=== PATIENT | female | born 1945 | race Caucasian/White ===

== ENCOUNTER 2016-12-21 13:24 | Inpatient (IN) | payer MEDICARE, OTHER ==
[~2016-12-21] VITALS: Ht 165.1 cm; Wt 83.7 kg
[2016-12-21] MEDS ORDERED: ONDANSETRON 4 MG INJ IV STA (14:57)
[2016-12-21] MEDS ORDERED: morphine 4 MG/ML VIAL IV STA (14:57)
[2016-12-21] MEDS ORDERED: SOD CHLORIDE 0.9% 500 ML IV STA (14:57)
[2016-12-21 15:15] LABS: ADD SCAN DIFF NO
[2016-12-21 15:16] LABS: BASOPHILS % 0.6 % (0.0-2.0); EOSINOPHILS % 0.3 % (0.0-7.0); HEMATOCRIT 39.6 % (37.0-47.0); HEMOGLOBIN 13.7 g/dl (12.0-16.0); LYMPHOCYTES # 0.8 10^3/ul (0.8-2.9); LYMPHOCYTES % 10.9 % (15.0-51.0); MEAN CORPUSCULAR HEMOGLOBIN 30.4 pg (29.0-33.0); MEAN CORPUSCULAR HGB CONC 34.6 g/dl (32.0-37.0); MEAN PLATELET VOLUME 9.4 fl (7.4-10.4); MONOCYTES % 13.5 % (0.0-11.0); NEUTROPHIL # 5.2 10^3/ul (1.6-7.5); NEUTROPHILS % 74.3 % (39.0-77.0); PLATELET COUNT 229 10^3/UL (140-415); RED CELL DISTRIBUTION WIDTH 12.4 % (11.5-14.5); WHITE BLOOD COUNT 7.1 10^3/ul (4.8-10.8)
--- NOTE | 2016-12-21 15:25 | ERA ---
ER Documentation Chief Complaint Date/Time DATE: 12/21/16 TIME: 15:23 Chief Complaint 5/10 CP with SOB x this am HPI Very pleasant 71-year-old female presents with chest pain. She states chest pain this morning that is central to the upper chest and radiating to her back that is pleuritic. Associated shortness of breath. Symptoms initially were 10 out of 10 and now 5 out of 10. She denies exertional symptoms or postprandial symptoms. No fevers or chills, no history of DVT. Prior chest surgery of her thymus but no stents no cardiac disease or cardiac surgery. ROS All systems reviewed and are negative except as per history of present illness. Medications Home Meds Reported Medications Duloxetine Hcl* (Duloxetine Hcl*) 60 Mg Capsule.dr, 60 MG PO DAILY, #30 CAP 12/21/16 Atorvastatin Calcium (Atorvastatin Calcium) 10 Mg Tablet, 10 MG PO DAILY, #30 TAB 12/21/16 Celecoxib* (Celebrex*) 200 Mg Capsule, 200 MG PO DAILY, CAP 12/21/16 Gabapentin* (Gabapentin*) 300 Mg Capsule, 300 MG PO BID, #60 CAP 12/21/16 Pyridostigmine [place]* (Pyridostigmine [place]*) 60 Mg Tablet, 120 MG PO BID, TAB 12/21/16 Allergies Allergies: Coded Allergies: No Known Allergy (Unverified , 12/21/16) PMhx/Soc History of Surgery: No Anesthesia Reaction: No Hx Neurological Disorder: No Hx Respiratory Disorders: No Hx Cardiac Disorders: No Hx Psychiatric Problems: No Hx Miscellaneous Medical Probl: Yes (HTN) Hx Alcohol Use: No Hx Substance Use: No Hx Tobacco Use: No FmHx Family History: No diabetes Physical Exam Vitals Vital Signs Date Time Temp Pulse Resp B/P Pulse Ox O2 Delivery O2 Flow Rate FiO2 12/21/16 17:50 99.0 79 19 137/60 95 Room Air 12/21/16 15:00 Nasal Cannula 2 12/21/16 13:32 98.8 83 20 138/81 97 Physical Exam General: Well developed, well nourished, no acute distress Head: Normocephalic, atraumatic. Eyes: Pupils equally reactive, EOM intact ENT: Moist mucous membranes Neck: Supple, no lymphadenopathy Respiratory: Lungs clear bilaterally, no distress Cardiovascular: RRR, no murmurs, rubs, or gallops Abdominal: Soft, non-tender, non-distended, no peritoneal signs : Deferred MSK: No edema, no unilateral swelling, 5/5 strength Neurologic: Alert and oriented, moving all extremities, normal speech, no focal weakness, no cerebellar signs Skin: No rash Psych: Normal mood Result Diagram: 12/21/16 1500 12/21/16 1500 Results 24 hrs Laboratory Tests Test 12/21/16 15:00 White Blood Count 7.110^3/ul Red Blood Count 4.5010^6/ul Hemoglobin 13.7g/dl Hematocrit 39.6% Mean Corpuscular Volume 88.0fl Mean Corpuscular Hemoglobin 30.4pg Mean Corpuscular Hemoglobin Concent 34.6g/dl Red Cell Distribution Width 12.4% Platelet Count 45175^3/UL Mean Platelet Volume 9.4fl Neutrophils % 74.3% Lymphocytes % 10.9% Monocytes % 13.5% Eosinophils % 0.3% Basophils % 0.6% Nucleated Red Blood Cells % 0.0/100WBC Neutrophils # 5.210^3/ul Lymphocytes # 0.810^3/ul Monocytes # 1.010^3/ul Eosinophils # 0.010^3/ul Basophils # 0.010^3/ul Nucleated Red Blood Cells # 0.010^3/ul Prothrombin Time 13.2Sec Prothrombin Time Ratio 1.0 INR International Normalized Ratio 1.00 Activated Partial Thromboplast Time 26.4Sec Sodium Level 144mmol/L Potassium Level 4.0mmol/L Chloride Level 103mmol/L Carbon Dioxide Level 23mmol/L Anion Gap 22 Blood Urea Nitrogen 15mg/dl Creatinine 0.68mg/dl Glucose Level 141mg/dl Calcium Level 10.0mg/dl Troponin I < 0.012ng/ml Current Medications Medications (Trade) Dose Ordered Sig/Brandyn Route PRN Reason Start Time Stop Time Status Last Admin Dose Admin Sodium Chloride (NS) 500 ml @ 500 mls/hr Q1H STAT IV 12/21/16 14:57 12/21/16 15:56 DC 12/21/16 15:12 Morphine Sulfate (morphine) 4 mg ONCE STAT IV 12/21/16 14:57 12/21/16 14:58 DC Ondansetron HCl (Zofran Inj) 4 mg ONCE STAT IV 12/21/16 14:57 12/21/16 14:58 DC Acetaminophen (Tylenol Tab) 650 mg ONCE ONCE PO 12/21/16 15:30 12/21/16 15:31 DC 12/21/16 15:46 IV Flush 10 ml 10 ml STK-MED ONCE .ROUTE 12/21/16 16:01 12/21/16 16:02 DC 12/21/16 16:33 Sodium Chloride 100 ml @ ud STK-MED ONCE .ROUTE 12/21/16 16:01 12/21/16 16:02 DC 12/21/16 16:33 Iohexol (Omnipaque) 100 ml @ ud STK-MED ONCE .ROUTE 12/21/16 16:01 12/21/16 16:02 DC 12/21/16 16:33 Famotidine (Pepcid Iv) 20 mg ONCE STAT IV 12/21/16 17:55 12/21/16 17:57 DC Miscellaneous Medication (Gi Cocktail (2)) 40 ml ONCE STAT PO 12/21/16 17:55 12/21/16 17:57 DC Ketorolac Tromethamine (Toradol) 15 mg ONCE STAT IV 12/21/16 17:55 12/21/16 17:57 DC Procedures/MDM EKG, MONITORS, & DIAGNOSTIC IMAGING: EKG: I reviewed and interpreted a 12-lead EKG. Rhythm: Normal sinus rhythm Ectopy: None Intervals: No abnormalities ST segments: No elevations or depressions T waves: No contiguous inversions Repeat EKG: EKG: I reviewed and interpreted a 12-lead EKG. Rhythm: Normal sinus rhythm Ectopy: None Intervals: No abnormalities ST segments: No elevations or depressions T waves: No contiguous inversions Chest x-ray: I reviewed and interpreted a 1 view of the chest Mediastinum: No enlargement Cardiac silhouette: No cardiomegaly Airspace: Clear lung montano bilaterally without evidence of pneumothorax Bones: No evidence of fracture CTPA: IMPRESSION: No visualized pulmonary embolus. Mild ectasia of the ascending thoracic aorta, measuring up to 3.7 cm. 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 Small to moderate pericardial effusion. Scattered atelectasis mixed with mild ground-glass opacity in the bilateral lower lobes. Ground-glass opacity could reflect mild airspace edema versus mild airspace inflammation. 2.6 cm low attenuation nodule in the right adrenal gland. This nodule is incompletely characterized on the current study. Further characterization with an adrenal protocol CT or MRI is recommended. Degenerative changes in the spine. RPTAT: AA LAB INTERPRETATION: Negative troponin MEDICAL DECISION MAKING: The patient's history, physical exam and clinical presentation is concerning for possible cardiogenic etiology and acute coronary syndrome, however the patient also has pleuritic component that is concerning for possible pulmonary embolism. Lower concern for dissection given limited risk factors. Consider musculoskeletal versus reflux as well. Based on the patient's clinical exam and history and risk factors, I have a much lower clinical concern for pulmonary embolism, acute aortic dissection, pneumothorax, pneumonia, cardiac tamponade HEART Score: 3 MACE Rate: 1.7% Shared Decision Making: We had a conversation regarding risk stratification, MACE rate, and the risks, benefits, alternatives of disposition planning options. Disposition planning: Given the patient's age I would recommend hospitalization to rule out ACS. ER COURSE: Patient has no evidence of PE or dissection. Patient given aspirin, Toradol, she refused morphine. GI cocktail provided. Given persistence of pain inpatient hospitalization recommended. I kept the patient and/or family informed of laboratory and diagnostic imaging results throughout the emergency room course. DISPOSITION PLAN: Telemetry admission for management of chest pain CONSULTATION: Accepting care team and consultations: I discussed the current laboratory data, diagnostic imaging and emergency care provided. Admitting team: Dr. Hudson Admitting team indication: Insurance directed Departure Diagnosis: Primary Impression: Chest pain Qualified Code: R07.9 - Chest pain, unspecified type Condition: Stable MC BELL MD Dec 21, 2016 15:25
[2016-12-21] MEDS ORDERED: ACETAMINOPHEN 325 MG TAB PO ONE (15:30)
--- NOTE | 2016-12-21 15:33 | RADRPT ---
PROCEDURE: XR Chest. CLINICAL INDICATION: Chest pain TECHNIQUE: Single frontal view of the chest was obtained COMPARISON: None FINDINGS: The heart is enlarged. The thoracic aorta is calcified. The lungs are clear. There is no pleural effusion or pneumothorax. RPTAT: AA IMPRESSION: Mild cardiomegaly. Calcified aorta consistent with atherosclerotic disease. .Andrew Martin MD, MD Date Time Electronically viewed and signed by .Andrew Martin MD, on 12/21/2016 15:33 .S/
[2016-12-21 15:39] LABS: ANION GAP 22 (8-16); BLOOD UREA NITROGEN 15 mg/dl (7-20); CARBON DIOXIDE 23 mmol/L (21-31); CHLORIDE 103 mmol/L (97-110); CREATININE 0.68 mg/dl (0.44-1.00); GLUCOSE 141 mg/dl (70-220); SODIUM 144 mmol/L (135-144)
[2016-12-21 15:44] LABS: PARTIAL THROMBOPLASTIN TIME 26.4 Sec (25.0-35.0); PROTIME 13.2 Sec (12.2-14.2)
[2016-12-21] MEDS ORDERED: PYRI60TA9 PO (16:00)
[2016-12-21] MEDS ORDERED: IOHEXOL 100 ML ONE (16:01)
[2016-12-21] MEDS ORDERED: GABA300C16 PO (16:01)
[2016-12-21] MEDS ORDERED: CELE200C PO (16:01)
[2016-12-21] MEDS ORDERED: SOD CHLORIDE 0.9% 100 ML ONE (16:01)
[2016-12-21] MEDS ORDERED: DULO60CA59 PO (16:02)
[2016-12-21] MEDS ORDERED: ATOR10TA65 PO (16:02)
--- NOTE | 2016-12-21 16:40 | RADRPT ---
PROCEDURE: CTA Chest with IV contrast. CLINICAL INDICATION: Chest pain and shortness of breath. TECHNIQUE: The study was performed utilizing a multidetector CT scanner. Direct spiral axial secti ons were obtained from the thoracic inlet through the upper abdomen before and after the injection o f 100 cc Omnipaque through fifth intravenous contrast material and reformatted at 1.25 mm. 3D, coron al and sagittal reformations were obtained. The images were reviewed on a PACS workstation. Automate d exposure control was utilized. DLP = 592.9 mGy-cm.CTDiVol = 35.2, 18.3 mGy. One or more of the following post reduction techniques were used: - Automated exposure control. - Adjustment of the mA and/or Kv according to patient's size. - Use of iterative reconstruction technique COMPARISON: No prior studies are available for comparison. FINDINGS: No pulmonary arterial filling defects to indicate pulmonary embolus are identified. Heart is large. Small to moderate pericardial effusion is identified. No hilar or mediastinal lymp hadenopathy is identified. The visualized portions of the inferior thyroid appear unremarkable. Khurram iant anatomy with an aberrant right subclavian artery is observed. The ascending aorta is mildly ect atic and measures up to 3.7 cm The thoracic esophagus appears normal. Scattered atelectasis mixed with mild ground-glass opacity is identified in the bilateral lower lobe s. Dependent, subsegmental atelectasis is noted in the bilateral upper lobes. Small bleb is seen i n the periphery of the right lower lobe. A 2.6 cm low attenuation nodule is identified in the right adrenal gland. Mild to moderate degenerative changes are identified in the spine. The subcutaneous and muscular so ft tissues surrounding the chest are unremarkable. IMPRESSION: No visualized pulmonary embolus. Mild ectasia of the ascending thoracic aorta, measuring up to 3.7 cm. 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 Small to moderate pericardial effusion. Scattered atelectasis mixed with mild ground-glass opacity in the bilateral lower lobes. Ground-gla ss opacity could reflect mild airspace edema versus mild airspace inflammation. 2.6 cm low attenuation nodule in the right adrenal gland. This nodule is incompletely characterized on the current study. Further characterization with an adrenal protocol CT or MRI is recommended. Degenerative changes in the spine. RPTAT: AA .Nitesh Lewis MD, MD Date Time Electronically viewed and signed by .Nitesh Lewis MD, MD on 12/21/2016 16:40 .P/
[2016-12-21 17:43] LABS: TROPONIN-I < 0.012 ng/ml (0.00-0.12)
[2016-12-21 17:50] VITALS: TEMP 99
[2016-12-21] MEDS ORDERED: FAMOTIDINE 20 MG INJ IV STA (17:55)
[2016-12-21] MEDS ORDERED: KETOROLAC 15 MG INJ IV STA (17:55)
[2016-12-21] MEDS ORDERED: LIDOCAINE/MYLANTA 40 ML BTL PO STA (17:55)
[2016-12-21] MEDS ORDERED: ONDANSETRON 4 MG INJ IV PRN ×2 (18:00→18:30)
[2016-12-21] MEDS ORDERED: ACETAMINOPHEN 325 MG TAB PO PRN ×2 (18:00→18:30)
[2016-12-21] MEDS ORDERED: NA PHOSPHATE/BIPHOS 133 ML ENEMA PR PRN (18:30)
[2016-12-21] MEDS ORDERED: morphine 2 MG INJ IV PRN (18:30)
[2016-12-21] MEDS ORDERED: ALBUTEROL/IPRATROPIUM (NEB) 3 ML AMP HHN PRN (18:30)
[2016-12-21] MEDS ORDERED: MAGNESIUM HYDROXIDE 30ML CUP PO PRN (18:30)
[2016-12-21] MEDS ORDERED: LORAZEPAM 2 MG INJ IV PRN (18:30)
[2016-12-21] MEDS ORDERED: NITROGLYCERIN (SL) 0.4 MG TAB SL PRN (18:30)
[2016-12-21] MEDS ORDERED: hydrALAzine 20 MG INJ IV PRN (18:30)
[2016-12-21] MEDS ORDERED: NACL 0.9% 3 ML SYG IV SCH (18:30)
[2016-12-21 18:53] VITALS: PULSE 78
[2016-12-21 19:35] VITALS: BP 130/71; RESP 20
--- NOTE | 2016-12-21 19:52 | HP ---
Date/Time of Note Date/Time of Note DATE: 12/21/16 TIME: 19:45 Assessment/Plan VTE Prophylaxis VTE Prophylaxis Intervention: heparin Lines/Catheters IV [facility] [place] Assessment/Plan Chief Complaint/Hosp Course Assessment and plan: 71-year-old female with chest pain symptoms for 2 days, history of myasthenia gravis, rule out ACS. 1. Chest pain: Could be secondary to acute coronary syndrome versus musculoskeletal. Patient has some risk factors including father with heart attack in the past. -Admit patient to telemetry floor, trend troponins every 6 hours, check TSH A1c lipid panel, aspirin, statin, echo. -Patient with recent arrhythmia since admission, and palpitations, will also get cardiology consult 2. Myasthenia gravis: Continue pyridostigmine 3. GERD: PPI 4. High cholesterol: Check lipid panel, statin 5. GI prophylaxis: PPI 6. DVT prophylaxis: Heparin subcutaneous Problems: HPI/ROS Admit Date/Time Admit Date/Time Dec 21, 2016 at 17:59 ROS 71-year-old female past medical history of high cholesterol, myasthenia gravis, GERD, thymus surgery in the past, he has been having chest pain for the last 2 days. She says it radiates to the shoulder and low back. She is also been having chest palpitations. Chest pain is constant in nature, radiating only to the areas mentioned above. No upper or lower GI bleeding, fevers or chills, nausea vomiting, diarrhea or constipation. PMH/Family/Social Past Surgical History Past Surgical Hx: other (Thymus surgery) Family History Significant Family History: other (F - [place]; M - living) Social History Alcohol Use: none Smoking Status: Never smoker Drug Use: none Exam/Review of Systems Vital Signs Vitals Vital Signs Date Time Temp Pulse Resp B/P Pulse Ox O2 Delivery O2 Flow Rate FiO2 12/21/16 19:35 98.4 75 20 130/71 98 12/21/16 17:50 Room Air 12/21/16 15:00 2 Exam Exam General: Patient sitting up in bed, playing with her iPad, in mild distress HEENT: Pupils equal round reactive to light extra ocular muscles are intact Neck: Supple Respiratory: Clear to auscultation bilaterally Cardiovascular: S1-S2 heard, no rubs or gallops GI: Nontender nondistended normal bowel sounds no rebound Muscular skeletal: No lower extremity edema bilaterally Neuro: No focal deficits Labs Result Diagram: 12/21/16 1500 12/21/16 1500 Medications Medications Current Medications Ondansetron HCl (Zofran Inj) 4 mg Q6H PRN IV NAUSEA AND/OR VOMITING; Start 12/21 at 18:30 Acetaminophen (Tylenol Tab) 650 mg Q6H PRN PO PAIN LEVEL 1-3 OR FEVER; Start at 18:30 Acetaminophen/ Hydrocodone Bitart ([place] (5/325)) 1 tab Q6H PRN PO MODERATE PAIN LEVEL 4-6; Start 12/21/16 at 18:30 Morphine Sulfate (morphine) 2 mg Q4H PRN IV SEVERE PAIN LEVEL 7-10; Start at 18:30 Docusate Sodium (Colace) 100 mg Q12H PRN PO CONSTIPATION; Start 12/21/16 at 18: 30 Magnesium Hydroxide (Milk Of Mag) 30 ml DAILY PRN PO CONSTIPATION; Start at 18:30 Sodium Biphosphate/ Sodium Phosphate (Fleet Enema) 133 ml DAILY PRN [place] CONSTIPATION; Start 12/21/16 at 18:30 Pantoprazole (Protonix Tab) 40 mg DAILY@06 PO ; Start 12/22/16 at 06:00 Heparin Sodium (Porcine) 5000 unit 5,000 unit Q12 SC ; Start 12/21/16 at 21:00 Sodium Chloride (1/2 NS) 1,000 ml @ 75 mls/hr [id number] IV ; Start 12/21/16 at 18: 25 Lorazepam (Ativan) 0.5 mg Q6H PRN IV ANXIETY; Start 12/21/16 at 18:30 Hydralazine HCl (Apresoline) 10 mg Q6H PRN IV ELEVATED BLOOD PRESSURE; Start at 18:30 Nitroglycerin (Nitroglycerin (Sl Tab) 0.4 Mg) 1 tab Q5M PRN SL ANGINA; Start at 18:30 Aspirin (Ecotrin) 325 mg DAILY PO ; Start 12/22/16 at 09:00 Atorvastatin Calcium (Lipitor) 10 mg DAILY PO ; Start 12/22/16 at 09:00 Duloxetine HCl (Cymbalta) 60 mg DAILY PO ; Start 12/22/16 at 09:00 Gabapentin (Neurontin) 300 mg BID PO ; Start 12/21/16 at 21:00 Pyridostigmine [place] (Mestinon) 120 mg BID PO ; Start 12/21/16 at 21:00 NAT MANCIA Dec 21, 2016 19:52
[2016-12-21 20:02] VITALS: PULSE 75
[2016-12-21] MEDS: METOPROLOL 25 MG TAB PO SCH (21:00)
[2016-12-21] MEDS: PYRIDOSTIGMINE 60 MG TAB PO SCH ×2 (21:00→21:06)
[2016-12-21] MEDS: GABAPENTIN 300 MG CAP PO SCH ×2 (21:00→21:07)
[2016-12-21 21:34] VITALS: Ht 165.1 cm; Wt 83.7 kg
[2016-12-21 21:36] LABS: MAGNESIUM 1.9 mg/dl (1.7-2.5)
[2016-12-21 21:38] LABS: CREATINE KINASE 30 IU/L (23-200)
[2016-12-21 21:39] LABS: ALBUMIN 4.2 g/dl (3.3-4.9); BILIRUBIN,INDIRECT 0.3 mg/dl (0-1.1); BILIRUBIN,TOTAL 0.3 mg/dl (0.2-1.3); TOTAL PROTEIN 6.4 g/dl (6.1-8.1)
[2016-12-21] MEDS: SOD CHLORIDE 0.45% 1,000 ML IV SCH (21:45)
[2016-12-21] MEDS: HEPARIN 5,000 UNIT/0.5 ML VIAL SC SCH (21:48)
[2016-12-21 21:49] LABS: CK-MB 0.57 ng/ml (0.0-2.4)
[2016-12-21 21:50] LABS: TROPONIN-I < 0.012 ng/ml (0.00-0.12)
[2016-12-22] VITALS (13 sets, daily range): BP systolic 110–127; BP diastolic 52–80; PULSE 63–86; RESP 15–20
[2016-12-22 00:34] LABS: CREATINE KINASE 27 IU/L (23-200)
[2016-12-22 00:46] LABS: CK-MB 0.52 ng/ml (0.0-2.4)
[2016-12-22 00:52] LABS: TROPONIN-I < 0.012 ng/ml (0.00-0.12)
[2016-12-22] MEDS: METOPROLOL 25 MG TAB PO SCH ×3 (01:12→20:27)
[2016-12-22 01:31] LABS: CREATINE KINASE 24 IU/L (23-200)
[2016-12-22 01:43] LABS: CK-MB 0.49 ng/ml (0.0-2.4)
[2016-12-22 01:52] LABS: TROPONIN-I < 0.012 ng/ml (0.00-0.12)
[2016-12-22] MEDS ORDERED: MAGNESIUM SULFATE 2 GM/50 ML 50 ML IVPB ONE (02:00)
[2016-12-22] MEDS: PANTOPRAZOLE (EC) 40 MG TAB PO SCH (05:58)
[2016-12-22 06:06] LABS: ADD SCAN DIFF NO
[2016-12-22 06:44] LABS: CREATINE KINASE 22 IU/L (23-200)
[2016-12-22 06:45] LABS: BASOPHILS % 0.5 % (0.0-2.0); EOSINOPHILS # 0.1 10^3/ul (0.0-0.5); EOSINOPHILS % 1.7 % (0.0-7.0); HEMATOCRIT 34.8 % (37.0-47.0); HEMOGLOBIN 11.8 g/dl (12.0-16.0); LYMPHOCYTES # 0.8 10^3/ul (0.8-2.9); MEAN CORPUSCULAR HEMOGLOBIN 29.9 pg (29.0-33.0); MEAN CORPUSCULAR HGB CONC 33.9 g/dl (32.0-37.0); MEAN CORPUSCULAR VOLUME 88.3 fl (82.0-101.0); MEAN PLATELET VOLUME 10.1 fl (7.4-10.4); MONOCYTES % 23.2 % (0.0-11.0); NEUTROPHIL # 2.3 10^3/ul (1.6-7.5); NEUTROPHILS % 55.1 % (39.0-77.0); PLATELET COUNT 204 10^3/UL (140-415); RED BLOOD COUNT 3.94 10^6/ul (4.20-5.40); RED CELL DISTRIBUTION WIDTH 12.5 % (11.5-14.5); WHITE BLOOD COUNT 4.2 10^3/ul (4.8-10.8)
[2016-12-22 06:52] LABS: CK-MB 0.39 ng/ml (0.0-2.4)
[2016-12-22 07:09] LABS: TROPONIN-I < 0.012 ng/ml (0.00-0.12)
[2016-12-22 07:44] LABS: THYROID STIMULATING HORMONE 1.89 MIU/L (0.465-4.680)
[2016-12-22] MEDS: SOD CHLORIDE 0.45% 1,000 ML IV SCH (07:45)
[2016-12-22 07:53] LABS: CALCIUM 8.6 mg/dl (8.4-10.2); CREATININE 0.61 mg/dl (0.44-1.00); MAGNESIUM 2.6 mg/dl (1.7-2.5); PHOSPHORUS 4.1 mg/dl (2.5-4.9); POTASSIUM 4.1 mmol/L (3.5-5.1)
[2016-12-22] MEDS: PYRIDOSTIGMINE 60 MG TAB PO SCH ×2 (08:15→08:16)
[2016-12-22] MEDS: DULOXETINE 30 MG CAP DR PO SCH (08:15)
[2016-12-22] MEDS: GABAPENTIN 300 MG CAP PO SCH ×2 (08:16→20:26)
[2016-12-22] MEDS: ASPIRIN (EC) 325 MG TAB PO SCH (08:16)
[2016-12-22] MEDS: ATORVASTATIN 10 MG TAB PO SCH (08:16)
[2016-12-22] MEDS: HEPARIN 5,000 UNIT/0.5 ML VIAL SC SCH ×2 (08:18→20:29)
--- NOTE | 2016-12-22 11:01 | CONS ---
Date/Time of Note Date/Time of Note DATE: 12/22/16 TIME: 10:58 Assessment/Plan Assessment/Plan Chief Complaint/Hosp Course 1) atypical chest pain 2) fam ho premature cardiac ds 3) MG 4) HLP 5) narrow complex tachycardia Problems: Additional Assessment/Plan 1) Stress testing 2) echo 3) statin 4) beta mil Consultation Date/Type/Reason Admit Date/Time Dec 21, 2016 at 17:59 Date of Consultation: Dec 22, 2016 Type of Consultation: cv Reason for Consultation chest pain Hx of Present Illness reports chest pain, yesterday, mid chest, constant, dull ,no radiation, not exertion or positional, no sob. Eyes: no complaints Respiratory: no complaints Cardiovascular: no complaints Gastrointestinal: no complaints Musculoskeletal: no complaints Skin: no complaints Neurologic: no complaints Past Medical History Medical History: high cholesterol, hypertension, other (mysthenia gravis) Past Surgical History Past Surgical Hx: other (Thymus surgery) Family History Significant Family History: heart disease, hypertension Social History Alcohol Use: none Smoking Status: Never smoker Drug Use: none Exam/Review of Systems Vital Signs Vitals Vital Signs Date Time Temp Pulse Resp B/P Pulse Ox O2 Delivery O2 Flow Rate FiO2 12/22/16 08:14 73 12/22/16 07:12 98.3 18 110/59 98 12/21/16 20:20 Nasal Cannula 2.0 Intake and Output 12/21/16 12/21/16 12/22/16 15:00 23:00 07:00 Intake Total 950 ml Output Total 1 ml Balance 949 ml Exam Constitutional: alert, oriented Head: atraumatic, normocephalic Neck: supple Respiratory: clear to auscultation Cardiovascular: regular rate and rhythm Gastrointestinal: soft Musculoskeletal: nl extremities to inspection Extremities: normal pulses Results Result Diagram: 12/22/16 0550 12/22/16 0550 Results 24 hrs Laboratory Tests Test 12/21/16 15:00 12/21/16 21:00 12/21/16 21:42 12/22/16 00:06 White Blood Count 7.1 Red Blood Count 4.50 Hemoglobin 13.7 Hematocrit 39.6 Mean Corpuscular Volume 88.0 Mean Corpuscular Hemoglobin 30.4 Mean Corpuscular Hemoglobin Concent 34.6 Red Cell Distribution Width 12.4 Platelet Count 229 Mean Platelet Volume 9.4 Neutrophils % 74.3 Lymphocytes % 10.9 L Monocytes % 13.5 H Eosinophils % 0.3 Basophils % 0.6 Nucleated Red Blood Cells % 0.0 Neutrophils # 5.2 Lymphocytes # 0.8 Monocytes # 1.0 H Eosinophils # 0.0 Basophils # 0.0 Nucleated Red Blood Cells # 0.0 Prothrombin Time 13.2 Prothrombin Time Ratio 1.0 INR International Normalized Ratio 1.00 Activated Partial Thromboplast Time 26.4 Sodium Level 144 Potassium Level 4.0 Chloride Level 103 Carbon Dioxide Level 23 Anion Gap 22 H Blood Urea Nitrogen 15 Creatinine 0.68 Glucose Level 141 Calcium Level 10.0 Troponin I < 0.012 < 0.012 < 0.012 Free Thyroxine 0.89 Phosphorus Level 4.0 Magnesium Level 1.9 Total Bilirubin 0.3 Direct Bilirubin 0.00 Indirect Bilirubin 0.3 Aspartate Amino Transf (AST/SGOT) 54 H Alanine Aminotransferase (ALT/SGPT) 78 H Alkaline Phosphatase 83 Creatine Kinase 30 27 Creatine Kinase Index 1.9 1.9 Creatinine Kinase MB (Mass) 0.57 0.52 Total Protein 6.4 Albumin 4.2 Bedside Glucose 166 Test 12/22/16 00:43 12/22/16 05:50 Creatine Kinase 24 22 L Creatine Kinase Index 2.0 1.8 Creatinine Kinase MB (Mass) 0.49 0.39 Troponin I < 0.012 < 0.012 White Blood Count 4.2 #L Red Blood Count 3.94 L Hemoglobin 11.8 L Hematocrit 34.8 L Mean Corpuscular Volume 88.3 Mean Corpuscular Hemoglobin 29.9 Mean Corpuscular Hemoglobin Concent 33.9 Red Cell Distribution Width 12.5 Platelet Count 204 Mean Platelet Volume 10.1 Neutrophils % 55.1 Lymphocytes % 19.0 Monocytes % 23.2 H Eosinophils % 1.7 Basophils % 0.5 Nucleated Red Blood Cells % 0.0 Neutrophils # 2.3 Lymphocytes # 0.8 Monocytes # 1.0 H Eosinophils # 0.1 Basophils # 0.0 Nucleated Red Blood Cells # 0.0 Sodium Level 136 Potassium Level 4.1 Chloride Level 104 Carbon Dioxide Level 22 Anion Gap 14 # Blood Urea Nitrogen 13 Creatinine 0.61 Glucose Level 147 Hemoglobin A1c 5.9 Calcium Level 8.6 Phosphorus Level 4.1 Magnesium Level 2.6 H Triglycerides Level 104 Cholesterol Level 131 LDL Cholesterol, Calculated 78 HDL Cholesterol 32 L Cholesterol/HDL Ratio 4.0 Thyroid Stimulating Hormone (TSH) 1.890 Medications Medications Current Medications Ondansetron HCl (Zofran Inj) 4 mg Q6H PRN IV NAUSEA AND/OR VOMITING; Start 12/21 at 18:30 Acetaminophen (Tylenol Tab) 650 mg Q6H PRN PO PAIN LEVEL 1-3 OR FEVER Last administered on 12/21/16 23:42; Admin Dose 650 MG; Start 12/21/16 at 18:30 Acetaminophen/ Hydrocodone Bitart ([place] (5/325)) 1 tab Q6H PRN PO MODERATE PAIN LEVEL 4-6; Start 12/21/16 at 18:30 Morphine Sulfate (morphine) 2 mg Q4H PRN IV SEVERE PAIN LEVEL 7-10 Last administered on 12/21/16 21:09; Admin Dose 1 MG; Start 12/21/16 at 18:30 Docusate Sodium (Colace) 100 mg Q12H PRN PO CONSTIPATION; Start 12/21/16 at 18: 30 Magnesium Hydroxide (Milk Of Mag) 30 ml DAILY PRN PO CONSTIPATION; Start at 18:30 Sodium Biphosphate/ Sodium Phosphate (Fleet Enema) 133 ml DAILY PRN [place] CONSTIPATION; Start 12/21/16 at 18:30 Pantoprazole (Protonix Tab) 40 mg DAILY@06 PO Last administered on 12/22/16 05: 58; Admin Dose 40 MG; Start 12/22/16 at 06:00 Heparin Sodium (Porcine) 5000 unit 5,000 unit Q12 SC Last administered on 08:18; Admin Dose 5,000 UNIT; Start 12/21/16 at 21:00 Sodium Chloride (1/2 NS) 1,000 ml @ 75 mls/hr [id number] IV Last administered on 12/21/16 21:45; Admin Dose 75 MLS/HR; Start 12/21/16 at 18:25 Lorazepam (Ativan) 0.5 mg Q6H PRN IV ANXIETY; Start 12/21/16 at 18:30 Hydralazine HCl (Apresoline) 10 mg Q6H PRN IV ELEVATED BLOOD PRESSURE; Start at 18:30 Nitroglycerin (Nitroglycerin (Sl Tab) 0.4 Mg) 1 tab Q5M PRN SL ANGINA; Start at 18:30 Aspirin (Ecotrin) 325 mg DAILY PO Last administered on 12/22/16 08:16; Admin Dose 325 MG; Start 12/22/16 at 09:00 Atorvastatin Calcium (Lipitor) 10 mg DAILY PO Last administered on 12/22/16 08: 16; Admin Dose 10 MG; Start 12/22/16 at 09:00 Duloxetine HCl (Cymbalta) 60 mg DAILY PO Last administered on 12/22/16 08:15; Admin Dose 60 MG; Start 12/22/16 at 09:00 Gabapentin (Neurontin) 300 mg BID PO Last administered on 12/22/16 08:16; Admin Dose 300 MG; Start 12/21/16 at 21:00 Pyridostigmine [place] (Mestinon) 120 mg BID PO Last administered on 12/22/16 08:16; Admin Dose 120 MG; Start 12/21/16 at 21:00 Metoprolol Tartrate (Lopressor) 12.5 mg BID PO Last administered on 12/22/16 08 :16; Admin Dose 12.5 MG; Start 12/21/16 at 21:00 Procedures Procedures EKG: SR, nonspecific ST changes SYLVIA VARGAS MD Dec 22, 2016 11:01
--- NOTE | 2016-12-22 14:16 | PN ---
Date/Time of Note Date/Time of Note DATE: 12/22/16 TIME: 14:15 Assessment/Plan VTE Prophylaxis VTE Prophylaxis Intervention: heparin Lines/Catheters IV C[facility] Type ([facility] Peripheral IV Urinary Cath still in place: No Assessment/Plan Chief Complaint/Hosp Course 1. Chest pain. To rule out acute coronary syndrome. Serial troponins negative so far. Pending 2D echocardiogram. Status post evaluation by cardiology. Patient scheduled for cardiac stress test on 12/23/2016. 2. Dyslipidemia. Continue statins. 3. Myasthenia gravis. Status post thymectomy. Continue Mestinon. 4. Narrow complex tachycardia. The patient was started on beta-blockers. 5. GERD. Continue proton pump inhibitors. Obtain gastroenterology consult. 6. Fluids, electrolytes, and nutrition. Low-cholesterol diet. 7. Gastrointestinal prophylaxis. Proton pump inhibitors. 8. DVT prophylaxis. Bilateral sequential compression devices. Subcutaneous heparin. 9. Plan. Await cardiac stress test on 12/23/2016. Obtain gastroenterology consult. Case discussed with . Problems: Subjective 24 Hr Interval Summary Free Text/Dictation Denies any chest pain at this time. Exam/Review of Systems Vital Signs Vitals Vital Signs Date Time Temp Pulse Resp B/P Pulse Ox O2 Delivery O2 Flow Rate FiO2 12/22/16 12:06 66 12/22/16 11:10 98.6 16 119/68 95 12/22/16 08:00 Nasal Cannula 2.0 Intake and Output 12/21/16 12/21/16 12/22/16 15:00 23:00 07:00 Intake Total 950 ml Output Total 1 ml Balance 949 ml Exam General: Obese 71 year-old female lying in bed in no apparent distress. HEENT: Normocephalic, atraumatic. Eyes: Anicteric sclerae, conjunctivae clear. ENT: Nasal septum midline, oral mucosa moist. Neck supple, no JVD noticed. Respiratory: Bilaterally clear breath sounds. No use of accessory muscles of respiration. No adventitious breath sounds. Cardiovascular: S1, S2 heard. No murmurs or gallops. Sternotomy scar. Abdomen: Soft, nontender, and nondistended. Bowel sounds positive in all 4 quadrants. Genitourinary: Deferred. Extremities: No cyanosis, no clubbing, no edema. Peripheral pulses palpable. Neurologic: Cranial nerves II through XII grossly intact. The patient is awake, alert, and oriented. Skin: Normal skin turgor. No skin rashes. Results Result Diagram: 12/22/16 0550 12/22/16 0550 Results 24 hrs Laboratory Tests Test 12/21/16 15:00 12/21/16 21:00 12/21/16 21:42 12/22/16 00:06 White Blood Count 7.1 Red Blood Count 4.50 Hemoglobin 13.7 Hematocrit 39.6 Mean Corpuscular Volume 88.0 Mean Corpuscular Hemoglobin 30.4 Mean Corpuscular Hemoglobin Concent 34.6 Red Cell Distribution Width 12.4 Platelet Count 229 Mean Platelet Volume 9.4 Neutrophils % 74.3 Lymphocytes % 10.9 L Monocytes % 13.5 H Eosinophils % 0.3 Basophils % 0.6 Nucleated Red Blood Cells % 0.0 Neutrophils # 5.2 Lymphocytes # 0.8 Monocytes # 1.0 H Eosinophils # 0.0 Basophils # 0.0 Nucleated Red Blood Cells # 0.0 Prothrombin Time 13.2 Prothrombin Time Ratio 1.0 INR International Normalized Ratio 1.00 Activated Partial Thromboplast Time 26.4 Sodium Level 144 Potassium Level 4.0 Chloride Level 103 Carbon Dioxide Level 23 Anion Gap 22 H Blood Urea Nitrogen 15 Creatinine 0.68 Glucose Level 141 Calcium Level 10.0 Troponin I < 0.012 < 0.012 < 0.012 Free Thyroxine 0.89 Phosphorus Level 4.0 Magnesium Level 1.9 Total Bilirubin 0.3 Direct Bilirubin 0.00 Indirect Bilirubin 0.3 Aspartate Amino Transf (AST/SGOT) 54 H Alanine Aminotransferase (ALT/SGPT) 78 H Alkaline Phosphatase 83 Creatine Kinase 30 27 Creatine Kinase Index 1.9 1.9 Creatinine Kinase MB (Mass) 0.57 0.52 Total Protein 6.4 Albumin 4.2 Bedside Glucose 166 Test 12/22/16 00:43 12/22/16 05:50 Creatine Kinase 24 22 L Creatine Kinase Index 2.0 1.8 Creatinine Kinase MB (Mass) 0.49 0.39 Troponin I < 0.012 < 0.012 White Blood Count 4.2 #L Red Blood Count 3.94 L Hemoglobin 11.8 L Hematocrit 34.8 L Mean Corpuscular Volume 88.3 Mean Corpuscular Hemoglobin 29.9 Mean Corpuscular Hemoglobin Concent 33.9 Red Cell Distribution Width 12.5 Platelet Count 204 Mean Platelet Volume 10.1 Neutrophils % 55.1 Lymphocytes % 19.0 Monocytes % 23.2 H Eosinophils % 1.7 Basophils % 0.5 Nucleated Red Blood Cells % 0.0 Neutrophils # 2.3 Lymphocytes # 0.8 Monocytes # 1.0 H Eosinophils # 0.1 Basophils # 0.0 Nucleated Red Blood Cells # 0.0 Sodium Level 136 Potassium Level 4.1 Chloride Level 104 Carbon Dioxide Level 22 Anion Gap 14 # Blood Urea Nitrogen 13 Creatinine 0.61 Glucose Level 147 Hemoglobin A1c 5.9 Calcium Level 8.6 Phosphorus Level 4.1 Magnesium Level 2.6 H Triglycerides Level 104 Cholesterol Level 131 LDL Cholesterol, Calculated 78 HDL Cholesterol 32 L Cholesterol/HDL Ratio 4.0 Thyroid Stimulating Hormone (TSH) 1.890 Medications Medications Current Medications Ondansetron HCl (Zofran Inj) 4 mg Q6H PRN IV NAUSEA AND/OR VOMITING; Start 12/21 at 18:30 Acetaminophen (Tylenol Tab) 650 mg Q6H PRN PO PAIN LEVEL 1-3 OR FEVER Last administered on 12/21/16 23:42; Admin Dose 650 MG; Start 12/21/16 at 18:30 Acetaminophen/ Hydrocodone Bitart ([place] (5/325)) 1 tab Q6H PRN PO MODERATE PAIN LEVEL 4-6; Start 12/21/16 at 18:30 Morphine Sulfate (morphine) 2 mg Q4H PRN IV SEVERE PAIN LEVEL 7-10 Last administered on 12/21/16 21:09; Admin Dose 1 MG; Start 12/21/16 at 18:30 Docusate Sodium (Colace) 100 mg Q12H PRN PO CONSTIPATION; Start 12/21/16 at 18: 30 Magnesium Hydroxide (Milk Of Mag) 30 ml DAILY PRN PO CONSTIPATION; Start at 18:30 Sodium Biphosphate/ Sodium Phosphate (Fleet Enema) 133 ml DAILY PRN [place] CONSTIPATION; Start 12/21/16 at 18:30 Pantoprazole (Protonix Tab) 40 mg DAILY@06 PO Last administered on 12/22/16 05: 58; Admin Dose 40 MG; Start 12/22/16 at 06:00 Heparin Sodium (Porcine) (Heparin (5000 Units/0.5 ml)) 5,000 unit Q12 SC Last administered on 12/22/16 08:18; Admin Dose 5,000 UNIT; Start 12/21/16 at 21:00 Lorazepam (Ativan) 0.5 mg Q6H PRN IV ANXIETY; Start 12/21/16 at 18:30 Hydralazine HCl (Apresoline) 10 mg Q6H PRN IV ELEVATED BLOOD PRESSURE; Start at 18:30 Nitroglycerin (Nitroglycerin (Sl Tab) 0.4 Mg) 1 tab Q5M PRN SL ANGINA; Start at 18:30 Aspirin (Ecotrin) 325 mg DAILY PO Last administered on 12/22/16 08:16; Admin Dose 325 MG; Start 12/22/16 at 09:00 Atorvastatin Calcium (Lipitor) 10 mg DAILY PO Last administered on 12/22/16 08: 16; Admin Dose 10 MG; Start 12/22/16 at 09:00 Duloxetine HCl (Cymbalta) 60 mg DAILY PO Last administered on 12/22/16 08:15; Admin Dose 60 MG; Start 12/22/16 at 09:00 Gabapentin (Neurontin) 300 mg BID PO Last administered on 12/22/16 08:16; Admin Dose 300 MG; Start 12/21/16 at 21:00 Pyridostigmine [place] (Mestinon) 120 mg BID PO Last administered on 12/22/16 08:16; Admin Dose 120 MG; Start 12/21/16 at 21:00 Metoprolol Tartrate (Lopressor) 12.5 mg BID PO Last administered on 12/22/16 08 :16; Admin Dose 12.5 MG; Start 12/21/16 at 21:00 LORRAINE WU NP Dec 22, 2016 14:16
--- NOTE | 2016-12-22 15:05 | CONS ---
Date/Time of Note Date/Time of Note DATE: 12/22/16 TIME: 14:44 Assessment/Plan Assessment/Plan Additional Assessment/Plan Assessment * Chest pain R/O ACS VS Atypical Chest pain * Myasthenia gravis * History of GERD' * History of Thymus surgery Plan * adequate pain control * EGD on Saturday after stress test tomorrow * Continue present management Consultation Date/Type/Reason Admit Date/Time Dec 21, 2016 at 17:59 Date of Consultation: Dec 22, 2016 Type of Consultation: Gastroenterology Reason for Consultation Acid reflux Referring Provider: LORRAINE UW CHOPPER OPERATOR Hx of Present Illness 71 year old female who presented in the emergency room because of chest pain.Past medical history includes myasthenia gravis,GERD,high cholesterol and thymus surgery.Present condition started 2 days ago as chest pain constant in character radiating to the shoulder and low back.She denies any hematemesis, hematochezia and abdominal pain but claims having acidic taste in the past. Emergency room course ,revealed WBC 7.1,hemoglobin 13.7 ,hematocrit 39.6, troponin I <0.012,creatine kinase 24,CKmb 49,CT angiothorax No visualized pulmonary embolus.Mild ectasia of the ascending thoracic aorta, measuring up to 3.7 cm. 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 Small to moderate pericardial effusion.Scattered atelectasis mixed with mild ground-glass opacity in the bilateral lower lobes. Ground-glass opacity could reflect mild airspace edema versus mild airspace inflammation.2.6 cm low attenuation nodule in the right adrenal gland. This nodule is incompletely characterized on the current study. Further characterization with an adrenal protocol CT or MRI is recommended Degenerative changes in the spine..Cardiology was consulted and a stress test s scheduled tomorrow. Presently patient still complains of chest and epigastric pain occurring on and off with no associated dyspnea Constitutional: improved, no complaints Eyes: no complaints ENT: no complaints Respiratory: no complaints Cardiovascular: chest pain Gastrointestinal: no complaints Genitourinary: no complaints Musculoskeletal: no complaints Skin: no complaints Neurologic: no complaints Endocrine: no complaints Lymphatic: no complaints Psychological: nl mood/affect, no complaints Immunologic: no complaints Past Medical History Medical History: high cholesterol, hypertension, other (mysthenia gravis) Past Surgical History Past Surgical Hx: other (Thymus surgery) Social History Alcohol Use: none Smoking Status: Never smoker Drug Use: none Exam/Review of Systems Vital Signs Vitals Vital Signs Date Time Temp Pulse Resp B/P Pulse Ox O2 Delivery O2 Flow Rate FiO2 12/22/16 12:06 66 12/22/16 11:10 98.6 16 119/68 95 12/22/16 08:00 Nasal Cannula 2.0 Intake and Output 12/21/16 12/21/16 12/22/16 15:00 23:00 07:00 Intake Total 950 ml Output Total 1 ml Balance 949 ml Exam Constitutional: alert, oriented, well developed Psych: nl mood/affect Head: normocephalic Eyes: PERRL, nl conjunctiva, nl sclera Neck: non-tender, supple Respiratory: clear to auscultation, normal air movement Cardiovascular: nl pulses, regular rate and rhythm Gastrointestinal: nl liver, spleen, non-tender, soft Musculoskeletal: nl extremities to inspection, nl gait and stance Extremities: normal pulses Neurological: nl mental status, nl speech, nl strength Skin: nl turgor, No rash or lesions Lymph: nl lymph nodes Results Result Diagram: 12/22/16 0550 12/22/16 0550 Results 24 hrs Laboratory Tests Test 12/21/16 15:00 12/21/16 21:00 12/21/16 21:42 12/22/16 00:06 White Blood Count 7.1 Red Blood Count 4.50 Hemoglobin 13.7 Hematocrit 39.6 Mean Corpuscular Volume 88.0 Mean Corpuscular Hemoglobin 30.4 Mean Corpuscular Hemoglobin Concent 34.6 Red Cell Distribution Width 12.4 Platelet Count 229 Mean Platelet Volume 9.4 Neutrophils % 74.3 Lymphocytes % 10.9 L Monocytes % 13.5 H Eosinophils % 0.3 Basophils % 0.6 Nucleated Red Blood Cells % 0.0 Neutrophils # 5.2 Lymphocytes # 0.8 Monocytes # 1.0 H Eosinophils # 0.0 Basophils # 0.0 Nucleated Red Blood Cells # 0.0 Prothrombin Time 13.2 Prothrombin Time Ratio 1.0 INR International Normalized Ratio 1.00 Activated Partial Thromboplast Time 26.4 Sodium Level 144 Potassium Level 4.0 Chloride Level 103 Carbon Dioxide Level 23 Anion Gap 22 H Blood Urea Nitrogen 15 Creatinine 0.68 Glucose Level 141 Calcium Level 10.0 Troponin I < 0.012 < 0.012 < 0.012 Free Thyroxine 0.89 Phosphorus Level 4.0 Magnesium Level 1.9 Total Bilirubin 0.3 Direct Bilirubin 0.00 Indirect Bilirubin 0.3 Aspartate Amino Transf (AST/SGOT) 54 H Alanine Aminotransferase (ALT/SGPT) 78 H Alkaline Phosphatase 83 Creatine Kinase 30 27 Creatine Kinase Index 1.9 1.9 Creatinine Kinase MB (Mass) 0.57 0.52 Total Protein 6.4 Albumin 4.2 Bedside Glucose 166 Test 12/22/16 00:43 12/22/16 05:50 Creatine Kinase 24 22 L Creatine Kinase Index 2.0 1.8 Creatinine Kinase MB (Mass) 0.49 0.39 Troponin I < 0.012 < 0.012 White Blood Count 4.2 #L Red Blood Count 3.94 L Hemoglobin 11.8 L Hematocrit 34.8 L Mean Corpuscular Volume 88.3 Mean Corpuscular Hemoglobin 29.9 Mean Corpuscular Hemoglobin Concent 33.9 Red Cell Distribution Width 12.5 Platelet Count 204 Mean Platelet Volume 10.1 Neutrophils % 55.1 Lymphocytes % 19.0 Monocytes % 23.2 H Eosinophils % 1.7 Basophils % 0.5 Nucleated Red Blood Cells % 0.0 Neutrophils # 2.3 Lymphocytes # 0.8 Monocytes # 1.0 H Eosinophils # 0.1 Basophils # 0.0 Nucleated Red Blood Cells # 0.0 Sodium Level 136 Potassium Level 4.1 Chloride Level 104 Carbon Dioxide Level 22 Anion Gap 14 # Blood Urea Nitrogen 13 Creatinine 0.61 Glucose Level 147 Hemoglobin A1c 5.9 Calcium Level 8.6 Phosphorus Level 4.1 Magnesium Level 2.6 H Triglycerides Level 104 Cholesterol Level 131 LDL Cholesterol, Calculated 78 HDL Cholesterol 32 L Cholesterol/HDL Ratio 4.0 Thyroid Stimulating Hormone (TSH) 1.890 Medications Medications Current Medications Ondansetron HCl (Zofran Inj) 4 mg Q6H PRN IV NAUSEA AND/OR VOMITING; Start 12/21 at 18:30 Acetaminophen (Tylenol Tab) 650 mg Q6H PRN PO PAIN LEVEL 1-3 OR FEVER Last administered on 12/21/16t 23:42; Admin Dose 650 MG; Start 12/21/16 at 18:30 Acetaminophen/ Hydrocodone Bitart ([place] (5/325)) 1 tab Q6H PRN PO MODERATE PAIN LEVEL 4-6; Start 12/21/16 at 18:30 Morphine Sulfate (morphine) 2 mg Q4H PRN IV SEVERE PAIN LEVEL 7-10 Last administered on 12/21/16 21:09; Admin Dose 1 MG; Start 12/21/16 at 18:30 Docusate Sodium (Colace) 100 mg Q12H PRN PO CONSTIPATION; Start 12/21/16 at 18: 30 Magnesium Hydroxide (Milk Of Mag) 30 ml DAILY PRN PO CONSTIPATION; Start at 18:30 Sodium Biphosphate/ Sodium Phosphate (Fleet Enema) 133 ml DAILY PRN [place] CONSTIPATION; Start 12/21/16 at 18:30 Pantoprazole (Protonix Tab) 40 mg DAILY@06 PO Last administered on 12/22/16 05: 58; Admin Dose 40 MG; Start 12/22/16 at 06:00 Heparin Sodium (Porcine) (Heparin (5000 Units/0.5 ml)) 5,000 unit Q12 SC Last administered on 12/22/16 08:18; Admin Dose 5,000 UNIT; Start 12/21/16 at 21:00 Lorazepam (Ativan) 0.5 mg Q6H PRN IV ANXIETY; Start 12/21/16 at 18:30 Hydralazine HCl (Apresoline) 10 mg Q6H PRN IV ELEVATED BLOOD PRESSURE; Start at 18:30 Nitroglycerin (Nitroglycerin (Sl Tab) 0.4 Mg) 1 tab Q5M PRN SL ANGINA; Start at 18:30 Aspirin (Ecotrin) 325 mg DAILY PO Last administered on 12/22/16 08:16; Admin Dose 325 MG; Start 12/22/16 at 09:00 Atorvastatin Calcium (Lipitor) 10 mg DAILY PO Last administered on 12/22/16 08: 16; Admin Dose 10 MG; Start 12/22/16 at 09:00 Duloxetine HCl (Cymbalta) 60 mg DAILY PO Last administered on 12/22/16 08:15; Admin Dose 60 MG; Start 12/22/16 at 09:00 Gabapentin (Neurontin) 300 mg BID PO Last administered on 12/22/16 08:16; Admin Dose 300 MG; Start 12/21/16 at 21:00 Pyridostigmine [place] (Mestinon) 120 mg BID PO Last administered on 12/22/16 08:16; Admin Dose 120 MG; Start 12/21/16 at 21:00 Metoprolol Tartrate (Lopressor) 12.5 mg BID PO Last administered on 12/22/16t 08 :16; Admin Dose 12.5 MG; Start 12/21/16 at 21:00 NURY CRAIN MD Dec 22, 2016 14:54
[2016-12-23] VITALS (10 sets, daily range): BP systolic 110–126; BP diastolic 65–81; PULSE 67–91; RESP 18–22
[2016-12-23] MEDS: PANTOPRAZOLE (EC) 40 MG TAB PO SCH (06:00)
[2016-12-23 06:57] LABS: MAGNESIUM 2.2 mg/dl (1.7-2.5); PHOSPHORUS 3.2 mg/dl (2.5-4.9)
[2016-12-23] MEDS: ASPIRIN (EC) 325 MG TAB PO SCH (08:22)
[2016-12-23] MEDS: DULOXETINE 30 MG CAP DR PO SCH (08:22)
[2016-12-23] MEDS: METOPROLOL 25 MG TAB PO SCH ×2 (08:23→21:36)
[2016-12-23] MEDS: ATORVASTATIN 10 MG TAB PO SCH (08:23)
[2016-12-23] MEDS: PYRIDOSTIGMINE 60 MG TAB PO SCH ×3 (08:23→21:35)
[2016-12-23] MEDS: GABAPENTIN 300 MG CAP PO SCH ×2 (08:23→21:35)
[2016-12-23 08:31] LABS: ADD SCAN DIFF NO
[2016-12-23 08:37] LABS: BASOPHILS % 0.6 % (0.0-2.0); EOSINOPHILS # 0.1 10^3/ul (0.0-0.5); EOSINOPHILS % 3.7 % (0.0-7.0); HEMATOCRIT 35.1 % (37.0-47.0); HEMOGLOBIN 11.7 g/dl (12.0-16.0); LYMPHOCYTES % 30.6 % (15.0-51.0); MEAN CORPUSCULAR HEMOGLOBIN 30.1 pg (29.0-33.0); MEAN CORPUSCULAR HGB CONC 33.3 g/dl (32.0-37.0); MEAN CORPUSCULAR VOLUME 90.2 fl (82.0-101.0); MEAN PLATELET VOLUME 10.4 fl (7.4-10.4); MONOCYTE # 0.7 10^3/ul (0.3-0.9); MONOCYTES % 22.6 % (0.0-11.0); NEUTROPHIL # 1.4 10^3/ul (1.6-7.5); NEUTROPHILS % 41.9 % (39.0-77.0); PLATELET COUNT 180 10^3/UL (140-415); RED BLOOD COUNT 3.89 10^6/ul (4.20-5.40); RED CELL DISTRIBUTION WIDTH 12.7 % (11.5-14.5); WHITE BLOOD COUNT 3.3 10^3/ul (4.8-10.8)
[2016-12-23 08:50] LABS: CALCIUM 8.5 mg/dl (8.4-10.2); CREATININE 0.59 mg/dl (0.44-1.00)
[2016-12-23] MEDS: HEPARIN 5,000 UNIT/0.5 ML VIAL SC SCH ×2 (09:00→21:37)
[2016-12-23] MEDS ORDERED: REGADENOSON 0.4 MG/5 ML SYG ONE (10:09)
--- NOTE | 2016-12-23 10:51 | PN ---
Date/Time of Note Date/Time of Note DATE: 12/23/16 TIME: 10:46 Assessment/Plan VTE Prophylaxis VTE Prophylaxis Intervention: LMWH Lines/Catheters IV C[facility]ter Type (from [facility] [place] Urinary Cath still in place: No Assessment/Plan Chief Complaint/Hosp Course S: No events overnight. for stress t. O: vss; no arrhythmia PE -Deferred patient in stress test A/P 1. Atypical chest pain. Fh cad. Stable, await stress t results. 2. Dyspepsia, anemia, atypical chest pain. Stable, EGD tomorrow if stress t is normal. 3. Anemia 4. Leukopenia 5. Prediabetes/dl, metabolic syndrome; risk factor modification 6. Pericardial effusion; mild, follow 7. Mild abn LFTs, stable observe 8. Chr GERD 9. Adrenal nodule? 2.6 cm. MRI ordered. 10. DJD 11. Chr m gravis, sp probable thymectomy. Stable observe Problems: Exam/Review of Systems Vital Signs Vitals Vital Signs Date Time Temp Pulse Resp B/P Pulse Ox O2 Delivery O2 Flow Rate FiO2 12/23/16 08:11 67 12/23/16 07:51 98.1 18 124/78 99 12/22/16 19:53 Nasal Cannula 2.0 Intake and Output 12/22/16 12/22/16 12/23/16 15:00 23:00 07:00 Intake Total 1100 ml 400 ml Balance 1100 ml 400 ml Results Result Diagram: 12/23/16 0502 12/23/16 0552 Results 24 hrs Laboratory Tests Test 12/23/16 05:02 12/23/16 05:52 White Blood Count 3.3 #L Red Blood Count 3.89 L Hemoglobin 11.7 L Hematocrit 35.1 L Mean Corpuscular Volume 90.2 Mean Corpuscular Hemoglobin 30.1 Mean Corpuscular Hemoglobin Concent 33.3 Red Cell Distribution Width 12.7 Platelet Count 180 Mean Platelet Volume 10.4 Neutrophils % 41.9 Lymphocytes % 30.6 Monocytes % 22.6 H Eosinophils % 3.7 Basophils % 0.6 Nucleated Red Blood Cells % 0.0 Neutrophils # 1.4 L Lymphocytes # 1.0 Monocytes # 0.7 Eosinophils # 0.1 Basophils # 0.0 Nucleated Red Blood Cells # 0.0 Sodium Level 135 Potassium Level 4.0 Chloride Level 106 Carbon Dioxide Level 25 Anion Gap 8 Blood Urea Nitrogen 9 Creatinine 0.59 Glucose Level 120 Calcium Level 8.5 Phosphorus Level 3.2 Magnesium Level 2.2 Medications Medications Current Medications Ondansetron HCl (Zofran Inj) 4 mg Q6H PRN IV NAUSEA AND/OR VOMITING; Start 12/21 at 18:30 Acetaminophen (Tylenol Tab) 650 mg Q6H PRN PO PAIN LEVEL 1-3 OR FEVER Last administered on 12/21/16 23:42; Admin Dose 650 MG; Start 12/21/16 at 18:30 Acetaminophen/ Hydrocodone Bitart ([place] (5/325)) 1 tab Q6H PRN PO MODERATE PAIN LEVEL 4-6; Start 12/21/16 at 18:30 Morphine Sulfate (morphine) 2 mg Q4H PRN IV SEVERE PAIN LEVEL 7-10 Last administered on 12/21/16 21:09; Admin Dose 1 MG; Start 12/21/16 at 18:30 Docusate Sodium (Colace) 100 mg Q12H PRN PO CONSTIPATION; Start 12/21/16 at 18: 30 Magnesium Hydroxide (Milk Of Mag) 30 ml DAILY PRN PO CONSTIPATION; Start at 18:30 Sodium Biphosphate/ Sodium Phosphate (Fleet Enema) 133 ml DAILY PRN [place] CONSTIPATION; Start 12/21/16 at 18:30 Pantoprazole (Protonix Tab) 40 mg DAILY@06 PO Last administered on 12/22/16 05: 58; Admin Dose 40 MG; Start 12/22/16 at 06:00 Heparin Sodium (Porcine) (Heparin (5000 Units/0.5 ml)) 5,000 unit Q12 SC Last administered on 12/22/16 20:29; Admin Dose 5,000 UNIT; Start 12/21/16 at 21:00 Lorazepam (Ativan) 0.5 mg Q6H PRN IV ANXIETY; Start 12/21/16 at 18:30 Hydralazine HCl (Apresoline) 10 mg Q6H PRN IV ELEVATED BLOOD PRESSURE; Start at 18:30 Nitroglycerin (Nitroglycerin (Sl Tab) 0.4 Mg) 1 tab Q5M PRN SL ANGINA; Start at 18:30 Aspirin (Ecotrin) 325 mg DAILY PO Last administered on 12/22/16 08:16; Admin Dose 325 MG; Start 12/22/16 at 09:00 Atorvastatin Calcium (Lipitor) 10 mg DAILY PO Last administered on 12/22/16 08: 16; Admin Dose 10 MG; Start 12/22/16 at 09:00 Duloxetine HCl (Cymbalta) 60 mg DAILY PO Last administered on 12/22/16 08:15; Admin Dose 60 MG; Start 12/22/16 at 09:00 Gabapentin (Neurontin) 300 mg BID PO Last administered on 12/22/16 20:26; Admin Dose 300 MG; Start 12/21/16 at 21:00 Pyridostigmine [place] (Mestinon) 120 mg BID PO Last administered on 12/22/16 08:16; Admin Dose 120 MG; Start 12/21/16 at 21:00 Metoprolol Tartrate (Lopressor) 12.5 mg BID PO Last administered on 12/22/16 20 :27; Admin Dose 12.5 MG; Start 12/21/16 at 21:00 KANDIS COSTA MD Dec 23, 2016 10:51
--- NOTE | 2016-12-23 12:12 | CONS ---
Date/Time of Note Date/Time of Note DATE: 12/23/16 TIME: 12:10 Assessment/Plan Assessment/Plan Additional Assessment/Plan Chest, abdominal and shoulder pain Myasthenia gravis Hypertension -Serial cardiac enzymes remain negative, patient for nuclear cardiac perfusion study today. Concurrently, undergoing GI workup. Consultation Date/Type/Reason Admit Date/Time Dec 21, 2016 at 17:59 Initial Consult Date 12/22/16 Type of Consultation: cv Referring Provider: LORRAINE WU LAMINATING MACHINE OPERATOR HELPER 24 HR Interval Summary Free Text/Dictation Patient continues to complain of stomach, shoulder and chest pain. Pain is aching like and worse with deep inspiration Exam/Review of Systems Vital Signs Vitals Vital Signs Date Time Temp Pulse Resp B/P Pulse Ox O2 Delivery O2 Flow Rate FiO2 12/23/16 08:11 67 12/23/16 07:51 98.1 18 124/78 99 12/22/16 19:53 Nasal Cannula 2.0 Intake and Output 12/22/16 12/22/16 12/23/16 15:00 23:00 07:00 Intake Total 1100 ml 400 ml Balance 1100 ml 400 ml Exam No apparent distress Constitutional: alert, obese, oriented Head: normocephalic Respiratory: other (Coarse breath sounds bilaterally, no wheezing) Cardiovascular: other (S1-S2 heard), regular rate and rhythm Gastrointestinal: bowel sounds, other (Mild diffuse discomfort with palpation) , soft Extremities: edema (Trace) Results Result Diagram: 12/23/16 0502 12/23/16 0552 Results 24 hrs Laboratory Tests Test 12/23/16 05:02 12/23/16 05:52 White Blood Count 3.3 #L Red Blood Count 3.89 L Hemoglobin 11.7 L Hematocrit 35.1 L Mean Corpuscular Volume 90.2 Mean Corpuscular Hemoglobin 30.1 Mean Corpuscular Hemoglobin Concent 33.3 Red Cell Distribution Width 12.7 Platelet Count 180 Mean Platelet Volume 10.4 Neutrophils % 41.9 Lymphocytes % 30.6 Monocytes % 22.6 H Eosinophils % 3.7 Basophils % 0.6 Nucleated Red Blood Cells % 0.0 Neutrophils # 1.4 L Lymphocytes # 1.0 Monocytes # 0.7 Eosinophils # 0.1 Basophils # 0.0 Nucleated Red Blood Cells # 0.0 Sodium Level 135 Potassium Level 4.0 Chloride Level 106 Carbon Dioxide Level 25 Anion Gap 8 Blood Urea Nitrogen 9 Creatinine 0.59 Glucose Level 120 Calcium Level 8.5 Phosphorus Level 3.2 Magnesium Level 2.2 Medications Medications Current Medications Ondansetron HCl (Zofran Inj) 4 mg Q6H PRN IV NAUSEA AND/OR VOMITING; Start 12/21 at 18:30 Acetaminophen (Tylenol Tab) 650 mg Q6H PRN PO PAIN LEVEL 1-3 OR FEVER Last administered on 12/21/16 23:42; Admin Dose 650 MG; Start 12/21/16 at 18:30 Acetaminophen/ Hydrocodone Bitart ([place] (5/325)) 1 tab Q6H PRN PO MODERATE PAIN LEVEL 4-6; Start 12/21/16 at 18:30 Morphine Sulfate (morphine) 2 mg Q4H PRN IV SEVERE PAIN LEVEL 7-10 Last administered on 12/21/16 21:09; Admin Dose 1 MG; Start 12/21/16 at 18:30 Docusate Sodium (Colace) 100 mg Q12H PRN PO CONSTIPATION; Start 12/21/16 at 18: 30 Sodium Biphosphate/ Sodium Phosphate (Fleet Enema) 133 ml DAILY PRN [place] CONSTIPATION; Start 12/21/16 at 18:30 Pantoprazole (Protonix Tab) 40 mg DAILY@06 PO Last administered on 12/22/16 05: 58; Admin Dose 40 MG; Start 12/22/16 at 06:00 Heparin Sodium (Porcine) (Heparin (5000 Units/0.5 ml)) 5,000 unit Q12 SC Last administered on 12/22/16 20:29; Admin Dose 5,000 UNIT; Start 12/21/16 at 21:00; Stop 12/23/16 at 23:00 Lorazepam (Ativan) 0.5 mg Q6H PRN IV ANXIETY; Start 12/21/16 at 18:30 Hydralazine HCl (Apresoline) 10 mg Q6H PRN IV ELEVATED BLOOD PRESSURE; Start at 18:30 Nitroglycerin (Nitroglycerin (Sl Tab) 0.4 Mg) 1 tab Q5M PRN SL ANGINA; Start at 18:30 Atorvastatin Calcium (Lipitor) 10 mg DAILY PO Last administered on 12/22/16 08: 16; Admin Dose 10 MG; Start 12/22/16 at 09:00 Duloxetine HCl (Cymbalta) 60 mg DAILY PO Last administered on 12/22/16 08:15; Admin Dose 60 MG; Start 12/22/16 at 09:00 Gabapentin (Neurontin) 300 mg BID PO Last administered on 12/22/16 20:26; Admin Dose 300 MG; Start 12/21/16 at 21:00 Pyridostigmine [place] (Mestinon) 120 mg BID PO Last administered on 12/22/16 08:16; Admin Dose 120 MG; Start 12/21/16 at 21:00 Metoprolol Tartrate (Lopressor) 12.5 mg BID PO Last administered on 12/22/16 20 :27; Admin Dose 12.5 MG; Start 12/21/16 at 21:00 Aspirin (Halfprin) 81 mg DAILY PO ; Start 12/24/16 at 09:00 Luis Antonio Burgos DO Dec 23, 2016 12:12
[2016-12-23] MEDS: HYDROCODONE/APAP (5/325) TAB PO PRN ×2 (12:40→19:26)
--- NOTE | 2016-12-23 13:32 | PN ---
Date/Time of Note Date/Time of Note DATE: 12/23/16 TIME: 13:29 Assessment/Plan VTE Prophylaxis VTE Prophylaxis Intervention: ambulation Lines/Catheters IV Catheter Type (from Nrs): Saline Lock Urinary Cath still in place: No Assessment/Plan Assessment/Plan Assessment * Chest pain R/O ACS VS Atypical Chest pain * Myasthenia gravis * History of GERD' * History of Thymus surgery Plan * adequate pain control * EGD on Saturday after stress test tomorrow * Continue present management * case discussed with Dr Ferreira Subjective 24 Hr Interval Summary Free Text/Dictation * course reviewed with RN * Patient seen and examined * No untoward events overnight Exam/Review of Systems Vital Signs Vitals Vital Signs Date Time Temp Pulse Resp B/P Pulse Ox O2 Delivery O2 Flow Rate FiO2 12/23/16 13:11 78 12/23/16 07:51 98.1 18 124/78 99 12/22/16 19:53 Nasal Cannula 2.0 Intake and Output 12/22/16 12/22/16 12/23/16 15:00 23:00 07:00 Intake Total 1100 ml 400 ml Balance 1100 ml 400 ml Exam Constitutional: alert, oriented Psych: no complaints Neck: non-tender, supple Respiratory: clear to auscultation, normal air movement Cardiovascular: nl pulses, regular rate and rhythm Gastrointestinal: nl liver, spleen, non-tender, soft Musculoskeletal: nl extremities to inspection, nl gait and stance Extremities: normal pulses Neurological: nl speech, nl strength Skin: nl turgor, No rash or lesions Lymph: nl lymph nodes Results Result Diagram: 12/23/16 0502 12/23/16 0552 Results 24 hrs Laboratory Tests Test 12/23/16 05:02 12/23/16 05:52 White Blood Count 3.3 #L Red Blood Count 3.89 L Hemoglobin 11.7 L Hematocrit 35.1 L Mean Corpuscular Volume 90.2 Mean Corpuscular Hemoglobin 30.1 Mean Corpuscular Hemoglobin Concent 33.3 Red Cell Distribution Width 12.7 Platelet Count 180 Mean Platelet Volume 10.4 Neutrophils % 41.9 Lymphocytes % 30.6 Monocytes % 22.6 H Eosinophils % 3.7 Basophils % 0.6 Nucleated Red Blood Cells % 0.0 Neutrophils # 1.4 L Lymphocytes # 1.0 Monocytes # 0.7 Eosinophils # 0.1 Basophils # 0.0 Nucleated Red Blood Cells # 0.0 Sodium Level 135 Potassium Level 4.0 Chloride Level 106 Carbon Dioxide Level 25 Anion Gap 8 Blood Urea Nitrogen 9 Creatinine 0.59 Glucose Level 120 Calcium Level 8.5 Phosphorus Level 3.2 Magnesium Level 2.2 Medications Medications Current Medications Ondansetron HCl (Zofran Inj) 4 mg Q6H PRN IV NAUSEA AND/OR VOMITING; Start 12/21 at 18:30 Acetaminophen (Tylenol Tab) 650 mg Q6H PRN PO PAIN LEVEL 1-3 OR FEVER Last administered on 12/21/16 23:42; Admin Dose 650 MG; Start 12/21/16 at 18:30 Acetaminophen/ Hydrocodone Bitart ([place] (5/325)) 1 tab Q6H PRN PO MODERATE PAIN LEVEL 4-6 Last administered on 12/23/16 12:40; Admin Dose 1 TAB; Start 12/21 at 18:30 Morphine Sulfate (morphine) 2 mg Q4H PRN IV SEVERE PAIN LEVEL 7-10 Last administered on 12/21/16 21:09; Admin Dose 1 MG; Start 12/21/16 at 18:30 Docusate Sodium (Colace) 100 mg Q12H PRN PO CONSTIPATION; Start 12/21/16 at 18: 30 Sodium Biphosphate/ Sodium Phosphate (Fleet Enema) 133 ml DAILY PRN [place] CONSTIPATION; Start 12/21/16 at 18:30 Pantoprazole (Protonix Tab) 40 mg DAILY@06 PO Last administered on 12/22/16 05: 58; Admin Dose 40 MG; Start 12/22/16 at 06:00 Heparin Sodium (Porcine) (Heparin (5000 Units/0.5 ml)) 5,000 unit Q12 SC Last administered on 12/22/16 20:29; Admin Dose 5,000 UNIT; Start 12/21/16 at 21:00; Stop 12/23/16 at 23:00 Lorazepam (Ativan) 0.5 mg Q6H PRN IV ANXIETY; Start 12/21/16 at 18:30 Hydralazine HCl (Apresoline) 10 mg Q6H PRN IV ELEVATED BLOOD PRESSURE; Start at 18:30 Nitroglycerin (Nitroglycerin (Sl Tab) 0.4 Mg) 1 tab Q5M PRN SL ANGINA; Start at 18:30 Atorvastatin Calcium (Lipitor) 10 mg DAILY PO Last administered on 12/22/16 08: 16; Admin Dose 10 MG; Start 12/22/16 at 09:00 Duloxetine HCl (Cymbalta) 60 mg DAILY PO Last administered on 12/22/16 08:15; Admin Dose 60 MG; Start 12/22/16 at 09:00 Gabapentin (Neurontin) 300 mg BID PO Last administered on 12/22/16 20:26; Admin Dose 300 MG; Start 12/21/16 at 21:00 Pyridostigmine [place] (Mestinon) 120 mg BID PO Last administered on 12/22/16 08:16; Admin Dose 120 MG; Start 12/21/16 at 21:00 Metoprolol Tartrate (Lopressor) 12.5 mg BID PO Last administered on 12/22/16 20 :27; Admin Dose 12.5 MG; Start 12/21/16 at 21:00 Aspirin (Halfprin) 81 mg DAILY PO ; Start 12/24/16 at 09:00 MARIELA CABALLERO NP Dec 23, 2016 13:32
--- NOTE | 2016-12-23 14:17 | RADRPT ---
Echocardiogram Report Patient Name: MARCIA LOVE Gender: Female Date: 1945 Study Date: 22-Dec-2016 Receptionist Scheduler: MELVIN Location: [facility] Height(Cm): 165 Weight(Kg): 83 BSA: 1.95 Ref. Physician: NAT MANCIA Quality: Technically Difficult Study Procedures: Transthoracic echocardiogram with complete 2D, M-Mode, and doppler examination. Indications: Chest Pain. 2D/M Mode Doppler Measurement Value Normal Ranges Measurement Value Normal Ranges AoR Diam MM 3.2 cm AV Peak Jorge L 1.4 m/sec ACS MM 2.1 cm AV Peak PG 7.3 mmHg LVIDd 2D 4.3 3.5 - 5.6 cm LVOT Peak Jorge L 1.0 m/sec LVIDs 2D 3.4 2.1 - 4.1 cm LVOT Peak PG 3.8 mmHg LVPWd 2D 1.2 0.6 - 1.1 cm MV E Peak Jorge L 0.6 m/sec IVSd 2D 1.1 0.6 - 1.1 cm MV A Peak Jorge L 0.8 m/sec EDV 2D 85.3 cm3 MV E/A 0.7 ESV 2D 38.8 cm3 MV Decel Time 214 msec LA Dimen 2D 3.6 2.3 - 4.0 cm MV Decel [place] 3 MV E/A 0.7 Findings Left Ventricle: Lower limits of normal systolic function, not all wall segments are seen clearly. Normal left ventricular cavity size. Mild hypertrophy of the basal septum. Ejection fraction is visually estimated at 50 %. Tissue Doppler/Mitral Doppler indices are consistent with impaired relaxation (Stage I diastolic dysfunction). Right Ventricle: Normal right ventricular size. Normal right ventricular systolic function. Left Atrium: The left atrium is normal in size. Right Atrium: The right atrium is normal in size. Mitral Valve: Normal appearance of the mitral valve. Minimal mitral annular calcification. Trace mitral regurgitation. Aortic Valve: Normal appearance of the aortic valve. No significant aortic stenosis or insufficiency. Tricuspid Valve: Normal appearance of the tricuspid valve. No evidence of tricuspid regurgitation. Pulmonic Valve: Pulmonic valve not well visualized. Pericardium: Small to medium pericardial effusion. The effusion in the parasternal and subcostal images does not measure greater than 1.0cm. Aorta: Normal aortic root with only very proximal segments noted. IVC: Normal size and normal respiratory collapse with sniff consistent with normal right atrial pressure. Pulmonary Artery: Not well visualized. Conclusions 1.Lower limits of normal systolic function, not all wall segments are seen clearly. Normal left ventricular cavity size. Mild hypertrophy of the basal septum. Ejection fraction is visually estimated at 50 %. Tissue Doppler/Mitral Doppler indices are consistent with impaired relaxation (Stage I diastolic dysfunction). 2.Normal right ventricular size. Normal right ventricular systolic function. 3.The left atrium is normal in size. 4.The right atrium is normal in size. 5.No significant valvular stenosis or regurgitation seen. 6.Small to medium pericardial effusion. The effusion in the parasternal and subcostal images does not measure greater than 1.0cm. Electronically Signed By: Luis Antonio Burgos 23-Dec-2016 14:16:16 -0700 Patient Name: MARCIA LOVE Study Date: 22-Dec-2016 [id number]
--- NOTE | 2016-12-23 15:16 | EN ---
Date/Time of Note Date/Time of Note DATE: 12/23/16 TIME: 15:14 Event Note Cardiology Cardiology Event Note Lexiscan nuclear perfusion cardiac study ECG report 12/23/2016 This is a 71-year-old female who presents with chest pain and abnormal ECG Baseline ECG demonstrates sinus rhythm at 72 bpm, anterior T-wave inversions Baseline blood pressure 124/82 Lexiscan was administered as per protocol Symptoms of abdominal discomfort and shortness of breath which resolved in recovery ECG demonstrated T-wave flattening, no arrhythmias Peak heart rate was 97 bpm Peak blood pressure was 124/82 ECG interpretation is nonischemic The nuclear portion will be interpreted by our radiology colleagues. Luis Antonio Burgos DO Dec 23, 2016 15:16
--- NOTE | 2016-12-23 17:04 | RADRPT ---
PROCEDURE: Nuclear medicine myocardial perfusion scan CLINICAL INDICATION: Chest pain TECHNIQUE: 30.0 mCi of technetium 99m Cardiolite was administered for the stress study. 10.0 mCi of technetium 99m Cardiolite was administered for the resting study. The patient was stressed with 0 .4 mg of Lexiscan. Images were reviewed in the short axis, vertical long axis, and horizontal long axis views. Wall motion was assessed and ejection fraction was calculated as well. Images were revi ewed on a high-resolution PACS workstation. COMPARISON: None available FINDINGS: Left ventricular size is within normal limits. There is moderate soft tissue and bowel attenuation artifact. The stress tomographic images demonstrate a normal pattern of perfusion. The resting andrey ographic images demonstrate a similar pattern. There is no evidence for reversible ischemia. Wall motion is normal. The ejection fraction is calculated at 70%. IMPRESSION: 1. Negative myocardial perfusion scan. 2. There is no evidence for reversible ischemia. 3. Normal wall motion with normal ejection fraction of 70%. RPTAT: HMJB .Pedro Díaz MD, MD Date Time Electronically viewed and signed by .Pedro Díaz MD, MD on 12/23/2016 17:04 .B/
[2016-12-24] VITALS (19 sets, daily range): BP systolic 106–141; BP diastolic 59–77; PULSE 69–81; RESP 15–20
[2016-12-24] MEDS: PANTOPRAZOLE (EC) 40 MG TAB PO SCH (06:00)
[2016-12-24 07:32] LABS: INR 1.1; PROTIME 14.2 Sec (12.2-14.2); PT RATIO 1.1
[2016-12-24 07:39] LABS: ALBUMIN 4.1 g/dl (3.3-4.9); ALBUMIN/GLOBULIN RATIO 1.51; BILIRUBIN,INDIRECT 0.4 mg/dl (0-1.1); BILIRUBIN,TOTAL 0.4 mg/dl (0.2-1.3); CALCIUM 8.7 mg/dl (8.4-10.2); CREATININE 0.55 mg/dl (0.44-1.00); MAGNESIUM 2.2 mg/dl (1.7-2.5); TOTAL PROTEIN 6.8 g/dl (6.1-8.1)
[2016-12-24 08:45] LABS: ADD SCAN DIFF NO
[2016-12-24 08:48] LABS: BASOPHILS % 0.5 % (0.0-2.0); EOSINOPHILS # 0.1 10^3/ul (0.0-0.5); EOSINOPHILS % 2.6 % (0.0-7.0); HEMATOCRIT 34.3 % (37.0-47.0); HEMOGLOBIN 11.9 g/dl (12.0-16.0); LYMPHOCYTES % 24.2 % (15.0-51.0); MEAN CORPUSCULAR HEMOGLOBIN 30.8 pg (29.0-33.0); MEAN CORPUSCULAR HGB CONC 34.7 g/dl (32.0-37.0); MEAN CORPUSCULAR VOLUME 88.9 fl (82.0-101.0); MEAN PLATELET VOLUME 10.2 fl (7.4-10.4); MONOCYTE # 0.8 10^3/ul (0.3-0.9); MONOCYTES % 21.2 % (0.0-11.0); PLATELET COUNT 223 10^3/UL (140-415); RED BLOOD COUNT 3.86 10^6/ul (4.20-5.40); RED CELL DISTRIBUTION WIDTH 12.7 % (11.5-14.5); WHITE BLOOD COUNT 3.9 10^3/ul (4.8-10.8)
[2016-12-24] MEDS ORDERED: ASPIRIN (EC) 81 MG TAB PO SCH (09:00)
[2016-12-24] MEDS: HYDROCODONE/APAP (5/325) TAB PO PRN ×2 (09:42→21:14)
[2016-12-24] MEDS: PYRIDOSTIGMINE 60 MG TAB PO SCH ×2 (09:43→21:14)
[2016-12-24] MEDS: DULOXETINE 30 MG CAP DR PO SCH (09:43)
[2016-12-24] MEDS: GABAPENTIN 300 MG CAP PO SCH ×2 (09:43→21:14)
[2016-12-24] MEDS: ATORVASTATIN 10 MG TAB PO SCH (09:44)
[2016-12-24] MEDS: METOPROLOL 25 MG TAB PO SCH ×2 (09:45→21:15)
--- NOTE | 2016-12-24 14:52 | CONS ---
Date/Time of Note Date/Time of Note DATE: 12/24/16 TIME: 14:49 Assessment/Plan Assessment/Plan Additional Assessment/Plan Chest, abdominal and shoulder pain, improved Myasthenia gravis Hypertension Low normal ejection fraction 50% Normal nuclear cardiac perfusion study 12/23/2016 No new cardiac orders at the current time. -Patient's cardiac nuclear perfusion study without any evidence of ischemia. Patient plan to undergo GI evaluation today. Consultation Date/Type/Reason Admit Date/Time Dec 23, 2016 at 16:58 Initial Consult Date 12/22/16 Type of Consultation: cv Referring Provider: LORRAINE WU NP 24 HR Interval Summary Free Text/Dictation Chest discomfort is improved and now only present with deep inspiration. Denies shortness of breath Exam/Review of Systems Vital Signs Vitals Vital Signs Date Time Temp Pulse Resp B/P Pulse Ox O2 Delivery O2 Flow Rate FiO2 12/24/16 12:12 80 12/24/16 11:14 98.8 16 125/74 94 12/22/16 19:53 Nasal Cannula 2.0 Intake and Output 12/23/16 12/23/16 12/24/16 15:00 23:00 07:00 Intake Total 200 ml 300 ml Balance 200 ml 300 ml Exam No apparent distress Constitutional: alert, oriented Head: normocephalic Respiratory: other (Coarse breath sounds bilaterally, no wheezing) Cardiovascular: other (S1-S2 heard), regular rate and rhythm Gastrointestinal: bowel sounds, non-tender, soft Extremities: edema Results Result Diagram: 12/24/16 0645 12/24/16 0640 Results 24 hrs Laboratory Tests Test 12/24/16 06:40 12/24/16 06:45 Prothrombin Time 14.2 Prothrombin Time Ratio 1.1 INR International Normalized Ratio 1.10 Sodium Level 137 Potassium Level 4.0 Chloride Level 106 Carbon Dioxide Level 23 Anion Gap 12 Blood Urea Nitrogen 10 Creatinine 0.55 Glucose Level 124 Calcium Level 8.7 Magnesium Level 2.2 Total Bilirubin 0.4 Direct Bilirubin 0.00 Indirect Bilirubin 0.4 Aspartate Amino Transf (AST/SGOT) 18 Alanine Aminotransferase (ALT/SGPT) 49 Alkaline Phosphatase 92 Total Protein 6.8 Albumin 4.1 Globulin 2.70 Albumin/Globulin Ratio 1.51 White Blood Count 3.9 L Red Blood Count 3.86 L Hemoglobin 11.9 L Hematocrit 34.3 L Mean Corpuscular Volume 88.9 Mean Corpuscular Hemoglobin 30.8 Mean Corpuscular Hemoglobin Concent 34.7 Red Cell Distribution Width 12.7 Platelet Count 223 # Mean Platelet Volume 10.2 Neutrophils % 51.0 Lymphocytes % 24.2 Monocytes % 21.2 H Eosinophils % 2.6 Basophils % 0.5 Nucleated Red Blood Cells % 0.0 Neutrophils # 2.0 Lymphocytes # 1.0 Monocytes # 0.8 Eosinophils # 0.1 Basophils # 0.0 Nucleated Red Blood Cells # 0.0 Medications Medications Current Medications Ondansetron HCl (Zofran Inj) 4 mg Q6H PRN IV NAUSEA AND/OR VOMITING; Start 12/21 at 18:30 Acetaminophen (Tylenol Tab) 650 mg Q6H PRN PO PAIN LEVEL 1-3 OR FEVER Last administered on 12/21/16 23:42; Admin Dose 650 MG; Start 12/21/16 at 18:30 Acetaminophen/ Hydrocodone Bitart ([place] (5/325)) 1 tab Q6H PRN PO MODERATE PAIN LEVEL 4-6 Last administered on 12/24/16 09:42; Admin Dose 1 TAB; Start 12/21/16 at 18:30 Morphine Sulfate (morphine) 2 mg Q4H PRN IV SEVERE PAIN LEVEL 7-10 Last administered on 12/21/16 21:09; Admin Dose 1 MG; Start 12/21/16 at 18:30 Docusate Sodium (Colace) 100 mg Q12H PRN PO CONSTIPATION; Start 12/21/16 at 18: 30 Sodium Biphosphate/ Sodium Phosphate (Fleet Enema) 133 ml DAILY PRN [place] CONSTIPATION; Start 12/21/16 at 18:30 Pantoprazole (Protonix Tab) 40 mg DAILY@06 PO Last administered on 12/22/16 05: 58; Admin Dose 40 MG; Start 12/22/16 at 06:00 Lorazepam (Ativan) 0.5 mg Q6H PRN IV ANXIETY; Start 12/21/16 at 18:30 Hydralazine HCl (Apresoline) 10 mg Q6H PRN IV ELEVATED BLOOD PRESSURE; Start at 18:30 Nitroglycerin (Nitroglycerin (Sl Tab) 0.4 Mg) 1 tab Q5M PRN SL ANGINA; Start at 18:30 Atorvastatin Calcium (Lipitor) 10 mg DAILY PO Last administered on 12/24/16 09 :44; Admin Dose 10 MG; Start 12/22/16 at 09:00 Duloxetine HCl (Cymbalta) 60 mg DAILY PO Last administered on 12/24/16 09:43; Admin Dose 60 MG; Start 12/22/16 at 09:00 Gabapentin (Neurontin) 300 mg BID PO Last administered on 12/24/16 09:43; Admin Dose 300 MG; Start 12/21/16 at 21:00 Pyridostigmine [place] (Mestinon) 120 mg BID PO Last administered on 12/24/16 09:43; Admin Dose 120 MG; Start 12/21/16 at 21:00 Metoprolol Tartrate (Lopressor) 12.5 mg BID PO Last administered on 12/24/16 09:45; Admin Dose 12.5 MG; Start 12/21/16 at 21:00 Aspirin (Halfprin) 81 mg DAILY PO Last administered on 12/24/16 09:43; Admin Dose 81 MG; Start 12/24/16 at 09:00 Luis Antonio Burgos DO Dec 24, 2016 14:52
--- NOTE | 2016-12-24 15:34 | PN ---
Date/Time of Note Date/Time of Note DATE: 12/24/16 TIME: 15:32 Assessment/Plan VTE Prophylaxis VTE Prophylaxis Intervention: heparin Lines/Catheters IV Catheter Type (from [facility]): Saline Lock Urinary Cath still in place: No Assessment/Plan Chief Complaint/Hosp Course 1. Chest pain. Acute coronary syndrome ruled out. Serial troponins negative. Status post evaluation by cardiology. Cardiac stress test negative for any reversible perfusion defects. 2. Dyslipidemia. Continue statins. 3. Myasthenia gravis. Status post thymectomy. Continue Mestinon. 4. Abdominal pain. The patient is scheduled for a esophagogastroduodenoscopy today. Gastroenterology following. Continue proton pump inhibitors. 5. GERD. Continue proton pump inhibitors. 6. A 2.6 cm low attenuation nodule is identified in the right adrenal gland. Pending abdominal MRI to further evaluate this. 7. Fluids, electrolytes, and nutrition. Low-cholesterol diet. 8. Gastrointestinal prophylaxis. Proton pump inhibitors. 9. DVT prophylaxis. Bilateral sequential compression devices. Subcutaneous heparin. 10. Plan. Await esophagogastroduodenoscopy. Pending abdominal MRI. Case discussed with . Problems: Subjective 24 Hr Interval Summary Free Text/Dictation Denies any chest pain. Exam/Review of Systems Vital Signs Vitals Vital Signs Date Time Temp Pulse Resp B/P Pulse Ox O2 Delivery O2 Flow Rate FiO2 12/24/16 14:52 98.9 73 19 141/74 99 Room Air 12/22/16 19:53 2.0 Intake and Output 12/23/16 12/23/16 12/24/16 15:00 23:00 07:00 Intake Total 200 ml 300 ml Balance 200 ml 300 ml Exam General: Obese 71 year-old female lying in bed in no apparent distress. HEENT: Normocephalic, atraumatic. Eyes: Anicteric sclerae, conjunctivae clear. ENT: Nasal septum midline, oral mucosa moist. Neck supple, no JVD noticed. Respiratory: Bilaterally clear breath sounds. No use of accessory muscles of respiration. No adventitious breath sounds. Cardiovascular: S1, S2 heard. No murmurs or gallops. Sternotomy scar. Abdomen: Soft, nontender, and nondistended. Bowel sounds positive in all 4 quadrants. Genitourinary: Deferred. Extremities: No cyanosis, no clubbing, no edema. Peripheral pulses palpable. Neurologic: Cranial nerves II through XII grossly intact. The patient is awake, alert, and oriented. Skin: Normal skin turgor. No skin rashes. Results Result Diagram: 12/24/16 0645 12/24/16 0640 Results 24 hrs Laboratory Tests Test 12/24/16 06:40 12/24/16 06:45 Prothrombin Time 14.2 Prothrombin Time Ratio 1.1 INR International Normalized Ratio 1.10 Sodium Level 137 Potassium Level 4.0 Chloride Level 106 Carbon Dioxide Level 23 Anion Gap 12 Blood Urea Nitrogen 10 Creatinine 0.55 Glucose Level 124 Calcium Level 8.7 Magnesium Level 2.2 Total Bilirubin 0.4 Direct Bilirubin 0.00 Indirect Bilirubin 0.4 Aspartate Amino Transf (AST/SGOT) 18 Alanine Aminotransferase (ALT/SGPT) 49 Alkaline Phosphatase 92 Total Protein 6.8 Albumin 4.1 Globulin 2.70 Albumin/Globulin Ratio 1.51 White Blood Count 3.9 L Red Blood Count 3.86 L Hemoglobin 11.9 L Hematocrit 34.3 L Mean Corpuscular Volume 88.9 Mean Corpuscular Hemoglobin 30.8 Mean Corpuscular Hemoglobin Concent 34.7 Red Cell Distribution Width 12.7 Platelet Count 223 # Mean Platelet Volume 10.2 Neutrophils % 51.0 Lymphocytes % 24.2 Monocytes % 21.2 H Eosinophils % 2.6 Basophils % 0.5 Nucleated Red Blood Cells % 0.0 Neutrophils # 2.0 Lymphocytes # 1.0 Monocytes # 0.8 Eosinophils # 0.1 Basophils # 0.0 Nucleated Red Blood Cells # 0.0 Medications Medications Current Medications Ondansetron HCl (Zofran Inj) 4 mg Q6H PRN IV NAUSEA AND/OR VOMITING; Start 12/21 at 18:30 Acetaminophen (Tylenol Tab) 650 mg Q6H PRN PO PAIN LEVEL 1-3 OR FEVER Last administered on 12/21/16 23:42; Admin Dose 650 MG; Start 12/21/16 at 18:30 Acetaminophen/ Hydrocodone Bitart ([place] (5/325)) 1 tab Q6H PRN PO MODERATE PAIN LEVEL 4-6 Last administered on 12/24/16 09:42; Admin Dose 1 TAB; Start 12/21/16 at 18:30 Morphine Sulfate (morphine) 2 mg Q4H PRN IV SEVERE PAIN LEVEL 7-10 Last administered on 12/21/16 21:09; Admin Dose 1 MG; Start 12/21/16 at 18:30 Docusate Sodium (Colace) 100 mg Q12H PRN PO CONSTIPATION; Start 12/21/16 at 18: 30 Sodium Biphosphate/ Sodium Phosphate (Fleet Enema) 133 ml DAILY PRN [place] CONSTIPATION; Start 12/21/16 at 18:30 Pantoprazole (Protonix Tab) 40 mg DAILY@06 PO Last administered on 12/22/16 05: 58; Admin Dose 40 MG; Start 12/22/16 at 06:00 Lorazepam (Ativan) 0.5 mg Q6H PRN IV ANXIETY; Start 12/21/16 at 18:30 Hydralazine HCl (Apresoline) 10 mg Q6H PRN IV ELEVATED BLOOD PRESSURE; Start at 18:30 Nitroglycerin (Nitroglycerin (Sl Tab) 0.4 Mg) 1 tab Q5M PRN SL ANGINA; Start at 18:30 Atorvastatin Calcium (Lipitor) 10 mg DAILY PO Last administered on 12/24/16 09 :44; Admin Dose 10 MG; Start 12/22/16 at 09:00 Duloxetine HCl (Cymbalta) 60 mg DAILY PO Last administered on 12/24/16 09:43; Admin Dose 60 MG; Start 12/22/16 at 09:00 Gabapentin (Neurontin) 300 mg BID PO Last administered on 12/24/16 09:43; Admin Dose 300 MG; Start 12/21/16 at 21:00 Pyridostigmine [place] (Mestinon) 120 mg BID PO Last administered on 12/24/16 09:43; Admin Dose 120 MG; Start 12/21/16 at 21:00 Metoprolol Tartrate (Lopressor) 12.5 mg BID PO Last administered on 12/24/16 09:45; Admin Dose 12.5 MG; Start 12/21/16 at 21:00 Aspirin (Halfprin) 81 mg DAILY PO Last administered on 12/24/16 09:43; Admin Dose 81 MG; Start 12/24/16 at 09:00 LORRAINE WU NP Dec 24, 2016 15:34
[2016-12-24] MEDS ORDERED: PROPOFOL 20 ML ONE (15:37)
[2016-12-24] MEDS ORDERED: LIDOCAINE 2% (SDV) 5 ML INJ ONE (15:37)
[2016-12-24] MEDS ORDERED: MIDAZOLAM 1 MG/ML 2 ML INJ ONE (15:37)
[2016-12-24] MEDS ORDERED: EPHEDrine SULFATE 50 MG/5 ML SYG IV PRN (16:00)
[2016-12-24] MEDS ORDERED: OXYCODONE/ACETAMINOPHEN (5/325) TAB PO PRN (16:00)
[2016-12-24] MEDS ORDERED: MEPERIDINE 25 MG INJ IV PRN (16:00)
[2016-12-24] MEDS ORDERED: hydrALAzine 20 MG INJ IV PRN (16:00)
[2016-12-24] MEDS ORDERED: HALOPERIDOL 5 MG INJ IV PRN (16:00)
[2016-12-24] MEDS ORDERED: ONDANSETRON 4 MG INJ IV PRN (16:00)
[2016-12-24] MEDS ORDERED: DIPHENHYDRAMINE 50 MG INJ IV PRN (16:00)
[2016-12-24] MEDS ORDERED: LABETALOL HCL 20MG INJ IV PRN (16:00)
--- NOTE | 2016-12-24 16:09 | OPR ---
Date/Time of Note Date/Time of Note DATE: 12/24/16 TIME: 16:07 Operative Report Preoperative Diagnosis * Atypical chest pain * Dyspepsia Postoperative Diagnosis * Erosive esophagitis. * Erosive gastritis. Rule out a spinal infection. Biopsies obtained * Multiple gastric ulcers, bulb and postbulbar. Rule out Yury-Reynoso syndrome Operation/Procedure Performed * EGD with biopsies Surgeon: NURY CRAIN MD Anesthesia: MAC Estimated Blood Loss: none Specimens * Gastric body and antrum Grafts/Implants NA Complications: None NURY CRAIN MD Dec 24, 2016 16:09
[2016-12-24] MEDS ORDERED: PANTOPRAZOLE (EC) 40 MG TAB PO SCH (21:00)
[2016-12-24] MEDS ORDERED: LORAZEPAM 0.5 MG TAB PO PRN (22:00)
[2016-12-25] VITALS (14 sets, daily range): BP systolic 97–128; BP diastolic 57–73; PULSE 68–82; RESP 15–20
[2016-12-25] MEDS: HYDROCODONE/APAP (5/325) TAB PO PRN (03:57)
[2016-12-25] MEDS: GABAPENTIN 300 MG CAP PO SCH ×2 (09:43→21:00)
[2016-12-25] MEDS: DULOXETINE 30 MG CAP DR PO SCH (09:43)
[2016-12-25] MEDS: PYRIDOSTIGMINE 60 MG TAB PO SCH ×2 (09:43→21:00)
[2016-12-25] MEDS: ATORVASTATIN 10 MG TAB PO SCH (09:43)
[2016-12-25] MEDS: METOPROLOL 25 MG TAB PO SCH ×2 (09:44→21:00)
[2016-12-25 10:32] LABS: ADD SCAN DIFF NO
[2016-12-25 10:39] LABS: BASOPHILS % 0.8 % (0.0-2.0); EOSINOPHILS # 0.2 10^3/ul (0.0-0.5); EOSINOPHILS % 4.3 % (0.0-7.0); HEMOGLOBIN 12.4 g/dl (12.0-16.0); LYMPHOCYTES # 0.9 10^3/ul (0.8-2.9); LYMPHOCYTES % 21.9 % (15.0-51.0); MEAN CORPUSCULAR HEMOGLOBIN 29.5 pg (29.0-33.0); MEAN CORPUSCULAR HGB CONC 33.5 g/dl (32.0-37.0); MEAN CORPUSCULAR VOLUME 88.1 fl (82.0-101.0); MEAN PLATELET VOLUME 9.9 fl (7.4-10.4); MONOCYTE # 0.8 10^3/ul (0.3-0.9); MONOCYTES % 20.1 % (0.0-11.0); NEUTROPHIL # 2.1 10^3/ul (1.6-7.5); NEUTROPHILS % 52.1 % (39.0-77.0); PLATELET COUNT 280 10^3/UL (140-415); RED CELL DISTRIBUTION WIDTH 12.6 % (11.5-14.5); WHITE BLOOD COUNT 3.9 10^3/ul (4.8-10.8)
--- NOTE | 2016-12-25 10:40 | PN ---
Date/Time of Note Date/Time of Note DATE: 12/25/16 TIME: 10:33 Assessment/Plan VTE Prophylaxis VTE Prophylaxis Intervention: SCD's Lines/Catheters IV Catheter Type (from [facility]): Peripheral IV Urinary Cath still in place: No Assessment/Plan Chief Complaint/Hosp Course 1. Chest pain. Acute coronary syndrome ruled out. Serial troponins negative. Status post evaluation by cardiology. Cardiac stress test negative for any reversible perfusion defects. 2. Dyslipidemia. Continue statins. 3. Myasthenia gravis. Status post thymectomy. Continue Mestinon. 4. Abdominal pain. Esophagogastroduodenoscopy showed erosive esophagitis, gastritis, and multiple gastric ulcers suggesting Yury-Reynoso syndrome. Continue proton pump inhibitors. 5. A 2.6 cm low attenuation nodule identified in the right adrenal gland. Pending abdominal MRI to further evaluate this. 6. Fluids, electrolytes, and nutrition. Low-cholesterol diet. 7. Gastrointestinal prophylaxis. Proton pump inhibitors. 8. DVT prophylaxis. Bilateral sequential compression devices. Subcutaneous heparin. 9. Plan. Pending abdominal MRI results. Pending pathology from esophagogastroduodenoscopy. Obtain endocrinology consult to further evaluate the right adrenal gland nodule. Case discussed with . Problems: Subjective 24 Hr Interval Summary Free Text/Dictation Denies any chest pain. Exam/Review of Systems Vital Signs Vitals Vital Signs Date Time Temp Pulse Resp B/P Pulse Ox O2 Delivery O2 Flow Rate FiO2 12/25/16 08:05 68 12/25/16 07:09 98.7 17 116/65 95 12/24/16 16:20 Room Air 12/22/16 19:53 2.0 Intake and Output 12/24/16 12/24/16 12/25/16 15:00 23:00 07:00 Intake Total 340 ml 200 ml Balance 340 ml 200 ml Exam General: Obese 71 year-old female lying in bed in no apparent distress. HEENT: Normocephalic, atraumatic. Eyes: Anicteric sclerae, conjunctivae clear. ENT: Nasal septum midline, oral mucosa moist. Neck supple, no JVD noticed. Respiratory: Bilaterally clear breath sounds. No use of accessory muscles of respiration. No adventitious breath sounds. Cardiovascular: S1, S2 heard. No murmurs or gallops. Sternotomy scar. Abdomen: Soft, nontender, and nondistended. Bowel sounds positive in all 4 quadrants. Genitourinary: Deferred. Extremities: No cyanosis, no clubbing, no edema. Peripheral pulses palpable. Neurologic: Cranial nerves II through XII grossly intact. The patient is awake, alert, and oriented. Skin: Normal skin turgor. No skin rashes. Results Result Diagram: 12/24/16 0645 12/24/16 0640 Medications Medications Current Medications Ondansetron HCl (Zofran Inj) 4 mg Q6H PRN IV NAUSEA AND/OR VOMITING; Start 12/21 at 18:30 Acetaminophen (Tylenol Tab) 650 mg Q6H PRN PO PAIN LEVEL 1-3 OR FEVER Last administered on 12/21/16 23:42; Admin Dose 650 MG; Start 12/21/16 at 18:30 Acetaminophen/ Hydrocodone Bitart ([place] (5/325)) 1 tab Q6H PRN PO MODERATE PAIN LEVEL 4-6 Last administered on 12/25/16 03:57; Admin Dose 1 TAB; Start 12/21/16 at 18:30 Morphine Sulfate (morphine) 2 mg Q4H PRN IV SEVERE PAIN LEVEL 7-10 Last administered on 12/21/16 21:09; Admin Dose 1 MG; Start 12/21/16 at 18:30 Docusate Sodium (Colace) 100 mg Q12H PRN PO CONSTIPATION; Start 12/21/16 at 18: 30 Sodium Biphosphate/ Sodium Phosphate (Fleet Enema) [address] CONSTIPATION; Start 12/21/16 at 18:30 Hydralazine HCl (Apresoline) 10 mg Q6H PRN IV ELEVATED BLOOD PRESSURE; Start at 18:30 Nitroglycerin (Nitroglycerin (Sl Tab) 0.4 Mg) 1 tab Q5M PRN SL ANGINA; Start at 18:30 Atorvastatin Calcium (Lipitor) 10 mg DAILY PO Last administered on 12/25/16 09 :43; Admin Dose 10 MG; Start 12/22/16 at 09:00 Duloxetine HCl (Cymbalta) 60 mg DAILY PO Last administered on 12/25/16 09:43; Admin Dose 60 MG; Start 12/22/16 at 09:00 Gabapentin (Neurontin) 300 mg BID PO Last administered on 12/25/16 09:43; Admin Dose 300 MG; Start 12/21/16 at 21:00 Pyridostigmine [place] (Mestinon) 120 mg BID PO Last administered on 12/25/16 09:43; Admin Dose 120 MG; Start 12/21/16 at 21:00 Metoprolol Tartrate (Lopressor) 12.5 mg BID PO Last administered on 12/25/16 09:44; Admin Dose 12.5 MG; Start 12/21/16 at 21:00 Lorazepam (Ativan) 0.5 mg Q6H PRN PO ANXIETY; Start 12/24/16 at 22:00 LORRAINE WU NP Dec 25, 2016 10:39
--- NOTE | 2016-12-25 10:55 | RADRPT ---
PROCEDURE: MRCP. CLINICAL INDICATION: Elevated liver function tests. Right adrenal nodule. TECHNIQUE: MRCP was performed. The following sequences were obtained: Three plane gradient echo localizers, coronal gradient echo images, breath hold axial T2-weighted fat saturation images, gil nal T2-weighted images, axial 3-D LAVA images, axial T2-weighted breath hold fast spin echo images, and 3-D coronal rotating MIP images of the biliary tree. COMPARISON: CT scan of the chest dated 12/21/2016 which demonstrated a 2.6 cm right adrenal nodule . FINDINGS: The liver is normal in size. There is normal signal intensity within the liver. There is no focal hepatic lesion. The spleen is normal in size and homogeneous in signal intensity. The gallbladder is not visualized indicating it is surgically absent. The bile ducts are normal with no dilatation or filling defect. The pancreatic duct is grossly normal. The right adrenal 2.6 x 2.0 cm nodule is demonstrated. There is no left adrenal nodule. The kidneys are grossly normal. The abdominal aorta is not dilated. IMPRESSION: 1. Status post cholecystectomy. 2. Normal bile ducts. 3. Right adrenal nodule measuring 2.4 x 2.0 cm. Correlation with adrenal protocol CT or MRI with i n phase and opposed phase imaging of the adrenals should be considered. 4. Otherwise unremarkable study. RPTAT: QQ .Stanislav Camacho MD, Date Time Electronically viewed and signed by .Stanislav Camacho MD, on 12/25/2016 10:54 .R/
[2016-12-25 10:57] LABS: CALCIUM 9.2 mg/dl (8.4-10.2); CREATININE 0.65 mg/dl (0.44-1.00); POTASSIUM 4.4 mmol/L (3.5-5.1)
--- NOTE | 2016-12-25 14:10 | PN ---
Date/Time of Note Date/Time of Note DATE: 12/25/16 TIME: 14:03 Assessment/Plan VTE Prophylaxis VTE Prophylaxis Intervention: ambulation Lines/Catheters [facility] Peripheral IV Urinary Cath still in place: No Assessment/Plan Assessment/Plan Assessment * Chest pain R/O ACS VS Atypical Chest pain EGD Erosive esophagitis. Erosive gastritis. Rule out a spinal infection. Biopsies obtained Multiple gastric ulcers, bulb and postbulbar. Rule out Yury-Reynoso syndrome * Myasthenia gravis * History of GERD' * History of Thymus surgery Plan * awaiting biopsy result * Continue present management * case discussed with Dr Ferreira * further orders will depend on clinical course Subjective 24 Hr Interval Summary Free Text/Dictation * Course reviewed with RN * Patient seen and examined * EGD Erosive esophagitis. Erosive gastritis. Rule out a H pylori infection. Biopsies obtained Multiple gastric ulcers, bulb and postbulbar. Rule out Yury- Reynoso syndrome Exam/Review of Systems Vital Signs Vitals Vital Signs Date Time Temp Pulse Resp B/P Pulse Ox O2 Delivery O2 Flow Rate FiO2 12/25/16 12:15 99.5 78 18 128/69 94 Room Air 12/22/16 19:53 2.0 Intake and Output 12/24/16 12/24/16 12/25/16 15:00 23:00 07:00 Intake Total 340 ml 200 ml Balance 340 ml 200 ml Exam Constitutional: alert, oriented Head: atraumatic, normocephalic Neck: non-tender, supple Respiratory: clear to auscultation, normal air movement Cardiovascular: nl pulses, regular rate and rhythm Gastrointestinal: non-tender, soft Musculoskeletal: nl extremities to inspection, nl gait and stance Neurological: nl speech Skin: nl turgor, rash or lesions Results Result Diagram: 12/25/1638 12/25/16 0938 Results 24 hrs Laboratory Tests Test 12/25/16 09:38 White Blood Count 3.9 L Red Blood Count 4.20 Hemoglobin 12.4 Hematocrit 37.0 Mean Corpuscular Volume 88.1 Mean Corpuscular Hemoglobin 29.5 Mean Corpuscular Hemoglobin Concent 33.5 Red Cell Distribution Width 12.6 Platelet Count 280 # Mean Platelet Volume 9.9 Neutrophils % 52.1 Lymphocytes % 21.9 Monocytes % 20.1 H Eosinophils % 4.3 Basophils % 0.8 Nucleated Red Blood Cells % 0.0 Neutrophils # 2.1 Lymphocytes # 0.9 Monocytes # 0.8 Eosinophils # 0.2 Basophils # 0.0 Nucleated Red Blood Cells # 0.0 Sodium Level 133 L Potassium Level 4.4 Chloride Level 99 Carbon Dioxide Level 28 Anion Gap 10 Blood Urea Nitrogen 13 Creatinine 0.65 Glucose Level 177 Calcium Level 9.2 Medications Medications Current Medications Ondansetron HCl (Zofran Inj) 4 mg Q6H PRN IV NAUSEA AND/OR VOMITING; Start 12/21 at 18:30 Acetaminophen (Tylenol Tab) 650 mg Q6H PRN PO PAIN LEVEL 1-3 OR FEVER Last administered on 12/21/16 23:42; Admin Dose 650 MG; Start 12/21/16 at 18:30 Acetaminophen/ Hydrocodone Bitart ([place] (5/325)) 1 tab Q6H PRN PO MODERATE PAIN LEVEL 4-6 Last administered on 12/25/16 03:57; Admin Dose 1 TAB; Start 12/21/16 at 18:30 Morphine Sulfate (morphine) 2 mg Q4H PRN IV SEVERE PAIN LEVEL 7-10 Last administered on 12/21/16 21:09; Admin Dose 1 MG; Start 12/21/16 at 18:30 Docusate Sodium (Colace) 100 mg Q12H PRN PO CONSTIPATION; Start 12/21/16 at 18: 30 Sodium Biphosphate/ Sodium Phosphate (Fleet Enema) 133 ml DAILY PRN [place] CONSTIPATION; Start 12/21/16 at 18:30 Hydralazine HCl (Apresoline) 10 mg Q6H PRN IV ELEVATED BLOOD PRESSURE; Start at 18:30 Nitroglycerin (Nitroglycerin (Sl Tab) 0.4 Mg) 1 tab Q5M PRN SL ANGINA; Start at 18:30 Atorvastatin Calcium (Lipitor) 10 mg DAILY PO Last administered on 12/25/16 09 :43; Admin Dose 10 MG; Start 12/22/16 at 09:00 Duloxetine HCl (Cymbalta) 60 mg DAILY PO Last administered on 12/25/16 09:43; Admin Dose 60 MG; Start 12/22/16 at 09:00 Gabapentin (Neurontin) 300 mg BID PO Last administered on 12/25/16 09:43; Admin Dose 300 MG; Start 12/21/16 at 21:00 Pyridostigmine [place] (Mestinon) 120 mg BID PO Last administered on 12/25/16 09:43; Admin Dose 120 MG; Start 12/21/16 at 21:00 Metoprolol Tartrate (Lopressor) 12.5 mg BID PO Last administered on 12/25/16 09:44; Admin Dose 12.5 MG; Start 12/21/16 at 21:00 Lorazepam (Ativan) 0.5 mg Q6H PRN PO ANXIETY; Start 12/24/16 at 22:00 MARIELA CABALLERO NP Dec 25, 2016 14:10
[2016-12-25] MEDS ORDERED: BARIUM SULF 2% 450 ML BTL (BERRY SMOOTHIE) PO ONE (15:30)
--- NOTE | 2016-12-25 17:55 | CONS ---
Date/Time of Note Date/Time of Note DATE: 12/25/16 TIME: 17:50 Assessment/Plan Assessment/Plan Problems: (1) Right adrenal mass Status: Chronic Comment: While I do not have any proof of the chronicity of this is quite likely this is been here for a long time. Incidence of benign incidental adrenal nodules in patients over 45 years of age is roughly 4%. Diagnostic imaging studies report will be a CT scan with and without contrast to measure the Hounsfield units which will give us the idea of whether or not this could be something more insidious such as metastatic disease (which I doubt) versus some type of an adenoma or lipoma. In the meantime we will go ahead and do the endocrine workup. The primary endocrine workup is to rule out hypercortisolism and hyper adrenergic state. She will have an overnight dexamethasone suppression test will do a 24 urine for fractionated catecholamines. I will follow her along with you. Consultation Date/Type/Reason Admit Date/Time Dec 23, 2016 at 16:58 Date of Consultation: Dec 25, 2016 Type of Consultation: Endocrinology Reason for Consultation Right adrenal nodule Referring Provider: LORRAINE WU [employer] Hx of Present Illness Pleasant 71-year-old [place] woman with an interesting medical history for myasthenia gravis was admitted for chest pain. In the course of workup she has been noted to have a 2.3 cm right adrenal nodule. The patient reports she was unaware of this for many prior information. Her main doctor is Dr. Mae Cooper in [place]. Patient has no history of hypertension she does not have any history of abnormal weight gain or signs or symptoms of hypercortisolism. She has borderline glucose intolerance. She does not have osteoporosis the best of her knowledge Constitutional: improved, no complaints Eyes: no complaints ENT: no complaints Respiratory: no complaints Cardiovascular: chest pain Gastrointestinal: no complaints Genitourinary: no complaints Musculoskeletal: no complaints Skin: no complaints Neurologic: no complaints Endocrine: no complaints Lymphatic: no complaints Psychological: no complaints Immunologic: no complaints Past Medical History Myasthenia gravis Medical History: high cholesterol, hypertension, other (mysthenia gravis) Past Surgical History Status post thymectomy Past Surgical Hx: other (Thymus surgery) Family History Significant Family History: diabetes Social History Alcohol Use: none Smoking Status: Never smoker Drug Use: none Exam/Review of Systems Vital Signs Vitals Vital Signs Date Time Temp Pulse Resp B/P Pulse Ox O2 Delivery O2 Flow Rate FiO2 12/25/16 16:05 82 12/25/16 15:22 98.8 18 119/71 93 12/25/16 12:15 Room Air 12/22/16 19:53 2.0 Intake and Output 12/24/16 12/24/16 12/25/16 15:00 23:00 07:00 Intake Total 340 ml 200 ml Balance 340 ml 200 ml Exam Pleasant older [place] woman in no jeremy distress Constitutional: alert, oriented Neck: non-tender, other (No thyroid nodules), supple Respiratory: clear to auscultation, normal air movement Cardiovascular: nl pulses, regular rate and rhythm Skin: other (No pigmented IIIa) Results Result Diagram: 12/25/1693712/25/16 0938 Results 24 hrs Laboratory Tests Test 12/25/16 09:38 White Blood Count 3.9 L Red Blood Count 4.20 Hemoglobin 12.4 Hematocrit 37.0 Mean Corpuscular Volume 88.1 Mean Corpuscular Hemoglobin 29.5 Mean Corpuscular Hemoglobin Concent 33.5 Red Cell Distribution Width 12.6 Platelet Count 280 # Mean Platelet Volume 9.9 Neutrophils % 52.1 Lymphocytes % 21.9 Monocytes % 20.1 H Eosinophils % 4.3 Basophils % 0.8 Nucleated Red Blood Cells % 0.0 Neutrophils # 2.1 Lymphocytes # 0.9 Monocytes # 0.8 Eosinophils # 0.2 Basophils # 0.0 Nucleated Red Blood Cells # 0.0 Sodium Level 133 L Potassium Level 4.4 Chloride Level 99 Carbon Dioxide Level 28 Anion Gap 10 Blood Urea Nitrogen 13 Creatinine 0.65 Glucose Level 177 Calcium Level 9.2 Medications Medications Current Medications Ondansetron HCl (Zofran Inj) 4 mg Q6H PRN IV NAUSEA AND/OR VOMITING; Start 12/21 at 18:30 Acetaminophen (Tylenol Tab) 650 mg Q6H PRN PO PAIN LEVEL 1-3 OR FEVER Last administered on 12/21/16 23:42; Admin Dose 650 MG; Start 12/21/16 at 18:30 Acetaminophen/ Hydrocodone Bitart ([place] (5/325)) 1 tab Q6H PRN PO MODERATE PAIN LEVEL 4-6 Last administered on 12/25/16 03:57; Admin Dose 1 TAB; Start 12/21/16 at 18:30 Morphine Sulfate (morphine) 2 mg Q4H PRN IV SEVERE PAIN LEVEL 7-10 Last administered on 12/21/16 21:09; Admin Dose 1 MG; Start 12/21/16 at 18:30 Docusate Sodium (Colace) 100 mg Q12H PRN PO CONSTIPATION; Start 12/21/16 at 18: 30 Sodium Biphosphate/ Sodium Phosphate (Fleet Enema) 133 ml DAILY PRN OR CONSTIPATION; Start 12/21/16 at 18:30 Hydralazine HCl (Apresoline) 10 mg Q6H PRN IV ELEVATED BLOOD PRESSURE; Start at 18:30 Nitroglycerin (Nitroglycerin (Sl Tab) 0.4 Mg) 1 tab Q5M PRN SL ANGINA; Start at 18:30 Atorvastatin Calcium (Lipitor) 10 mg DAILY PO Last administered on 12/25/16 09 :43; Admin Dose 10 MG; Start 12/22/16 at 09:00 Duloxetine HCl (Cymbalta) 60 mg DAILY PO Last administered on 12/25/16 09:43; Admin Dose 60 MG; Start 12/22/16 at 09:00 Gabapentin (Neurontin) 300 mg BID PO Last administered on 12/25/16 09:43; Admin Dose 300 MG; Start 12/21/16 at 21:00 Pyridostigmine [place] (Mestinon) 120 mg BID PO Last administered on 12/25/16 09:43; Admin Dose 120 MG; Start 12/21/16 at 21:00 Metoprolol Tartrate (Lopressor) 12.5 mg BID PO Last administered on 12/25/16 09:44; Admin Dose 12.5 MG; Start 12/21/16 at 21:00 Lorazepam (Ativan) 0.5 mg Q6H PRN PO ANXIETY; Start 12/24/16 at 22:00 Dexamethasone (Decadron) 1 mg ONCE ONCE PO ; Start 12/25/16 at 23:30; Stop 05/03 at 23:31 CHERELLE TORREZ MD Dec 25, 2016 17:54
[2016-12-25] MEDS ORDERED: SOD CHLORIDE 0.9% 0 ML ONE (18:25)
[2016-12-25] MEDS ORDERED: IOHEXOL 0 ML ONE (18:25)
[2016-12-25] MEDS ORDERED: SOD CHLORIDE 0.9% 100 ML ONE (18:45)
[2016-12-25] MEDS ORDERED: IOHEXOL 100 ML ONE (18:45)
[2016-12-25] MEDS: DOCUSATE SODIUM 100 MG CAP PO PRN (23:21)
[2016-12-25] MEDS ORDERED: DEXAMETHASONE 1 MG TAB PO ONE (23:30)
[2016-12-26] VITALS (11 sets, daily range): BP systolic 104–137; BP diastolic 58–97; PULSE 60–86; RESP 17–20
[2016-12-26] MEDS: DULOXETINE 30 MG CAP DR PO SCH (09:00)
[2016-12-26 09:05] LABS: ADD SCAN DIFF NO
[2016-12-26 09:09] LABS: ABNORMAL IP MESSAGE 1; BASOPHILS % 1.2 % (0.0-2.0); EOSINOPHILS # 0.1 10^3/ul (0.0-0.5); EOSINOPHILS % 5.1 % (0.0-7.0); HEMATOCRIT 37.8 % (37.0-47.0); LYMPHOCYTES # 0.8 10^3/ul (0.8-2.9); LYMPHOCYTES % 32.3 % (15.0-51.0); MEAN CORPUSCULAR HEMOGLOBIN 30.2 pg (29.0-33.0); MEAN CORPUSCULAR HGB CONC 34.4 g/dl (32.0-37.0); MEAN CORPUSCULAR VOLUME 87.9 fl (82.0-101.0); MEAN PLATELET VOLUME 9.4 fl (7.4-10.4); MONOCYTE # 0.6 10^3/ul (0.3-0.9); MONOCYTES % 23.6 % (0.0-11.0); NEUTROPHILS % 37.4 % (39.0-77.0); PLATELET COUNT 297 10^3/UL (140-415); RED CELL DISTRIBUTION WIDTH 12.2 % (11.5-14.5); WHITE BLOOD COUNT 2.5 10^3/ul (4.8-10.8)
[2016-12-26 09:35] LABS: MAGNESIUM 2.1 mg/dl (1.7-2.5); PHOSPHORUS 4.5 mg/dl (2.5-4.9)
[2016-12-26] MEDS: ATORVASTATIN 10 MG TAB PO SCH (09:36)
[2016-12-26] MEDS: METOPROLOL 25 MG TAB PO SCH ×2 (09:36→21:42)
[2016-12-26] MEDS: GABAPENTIN 300 MG CAP PO SCH ×2 (09:36→21:41)
[2016-12-26] MEDS ORDERED: SOD CHLORIDE 0.9% 100 ML ONE (09:39)
[2016-12-26] MEDS ORDERED: IOHEXOL 100 ML ONE (09:39)
[2016-12-26 10:18] LABS: CALCIUM 9.1 mg/dl (8.4-10.2); CREATININE 0.6 mg/dl (0.44-1.00); POTASSIUM 4.1 mmol/L (3.5-5.1)
[2016-12-26] MEDS: PYRIDOSTIGMINE 60 MG TAB PO SCH ×2 (11:25→21:41)
--- NOTE | 2016-12-26 12:44 | RADRPT ---
PROCEDURE: CT Abdomen with and without contrast - adrenal protocol. CLINICAL INDICATION: Adrenal nodule TECHNIQUE: CT of the abdomen was performed on a multidetector scanner both before and following th e uncomplicated IV administration of 100 cc of Omnipaque 350. Coronal and sagittal images were refo rmatted from the axial data set. One or more of the following dose reduction techniques were used: automated exposure control, adjustment of the mA and/or kV according to patient size, use of iterati ve reconstruction technique. CTDI = 22.81, 22.92, 22.97 mGy. DLP = 2016.44 mGy-cm. COMPARISON: MRI, 12/24/2016; CT, 12/21/2016 FINDINGS: There are mild bilateral pleural effusions, with associated bibasilar atelectasis. The heart size i s normal. Mild pericardial effusion is noted, with slight thickening and enhancement of pericardial surfaces. Gallbladder is surgically absent. Liver is fatty infiltrated, without evidence of focal mass. Biliary tree, pancreas, spleen and kidneys are unremarkable except for benign renal cysts. No urolithiasis or obstructive uropathy is identified. Bilateral benign adrenal adenomas are identi fied measuring up to 2.3 cm on the right - density measurements are -3 HU precontrast, 58 HU postcon trast, and 12 HU delayed postcontrast. The stomach is grossly unremarkable. The aorta is of normal caliber. Aortic vascular calcifications are present. There is no retroperit marx lymphadenopathy. The fadi hepatis region is clear. No bowel obstruction, free intraperitone al air or abscess is identified. Scattered colonic diverticula are seen without diverticulitis. The surrounding osseous structures are remarkable for degenerative enthesopathy of the spine. No os teolytic or osteoblastic lesion is detected. IMPRESSION: 1. Mild pericardial effusion is identified, increased from the prior CT. There is slight enhanceme nt and thickening of pericardial surfaces, concerning for pericarditis. 2. Mild bilateral pleural effusions are noted, also increased. 3. Bilateral benign adrenal adenomas are identified. There is no evidence of adrenal malignancy. 4. Hepatic steatosis is noted. Gallbladder is surgically absent. 5. Aortic atherosclerotic calcifications are present. 6. Scattered colonic diverticula are seen without diverticulitis. RPTAT: EE .Kashmir Barrett MD, MD Date Time Electronically viewed and signed by .Kashmir Barrett MD, MD on 12/26/2016 12:43 .R/
--- NOTE | 2016-12-26 13:35 | PN ---
Date/Time of Note Date/Time of Note DATE: 12/26/16 TIME: 13:32 Assessment/Plan VTE Prophylaxis VTE Prophylaxis Intervention: ambulation Lines/Catheters IV [facility]ter Type (from [facility]): [place] Urinary Cath still in place: No Assessment/Plan Assessment/Plan Assessment * Chest pain R/O ACS VS Atypical Chest pain EGD Erosive esophagitis. Erosive gastritis. Rule out a spinal infection. Biopsies obtained Multiple gastric ulcers, bulb and postbulbar. Rule out Yury-Reynoso syndrome * Myasthenia gravis * History of GERD' * History of Thymus surgery Plan * work up c/o Endocrinology * Continue present management * case discussed with Dr Ferreira * further orders will depend on clinical course Subjective 24 Hr Interval Summary Free Text/Dictation * Course reviewed with RN * Patient seen and examined * No untoward events overnight * Biopsy results Gastric biopsy: -- Antral and oxyntic mucosa showing minimal plasma cell infiltration. -- No Helicobacter pylori is identified in Giemsa stain (positive control concurrently reviewed). -- No evidence of intestinal metaplasia, dysplasia or malignancy. Exam/Review of Systems Vital Signs Vitals Vital Signs Date Time Temp Pulse Resp B/P Pulse Ox O2 Delivery O2 Flow Rate FiO2 12/26/16 12:03 86 12/26/16 11:43 98.1 18 108/61 94 12/25/16 12:15 Room Air 12/22/16 19:53 2.0 Intake and Output 12/25/16 12/25/16 12/26/16 15:00 23:00 07:00 Intake Total 1600 ml 660 ml Balance 1600 ml 660 ml Exam Constitutional: alert, oriented Head: normocephalic Neck: non-tender, supple Respiratory: clear to auscultation, normal air movement Cardiovascular: nl pulses, regular rate and rhythm Gastrointestinal: non-tender, soft Musculoskeletal: nl extremities to inspection, nl gait and stance Extremities: normal pulses Neurological: nl speech, nl strength Skin: nl turgor, No rash or lesions Results Result Diagram: 12/26/16 0758 12/26/16 0758 Results 24 hrs Laboratory Tests Test 12/26/16 07:58 White Blood Count 2.5 #L Red Blood Count 4.30 Hemoglobin 13.0 Hematocrit 37.8 Mean Corpuscular Volume 87.9 Mean Corpuscular Hemoglobin 30.2 Mean Corpuscular Hemoglobin Concent 34.4 Red Cell Distribution Width 12.2 Platelet Count 297 Mean Platelet Volume 9.4 Neutrophils % 37.4 L Lymphocytes % 32.3 Monocytes % 23.6 H Eosinophils % 5.1 Basophils % 1.2 Nucleated Red Blood Cells % 0.0 Neutrophils # 1.0 L Lymphocytes # 0.8 Monocytes # 0.6 Eosinophils # 0.1 Basophils # 0.0 Nucleated Red Blood Cells # 0.0 Sodium Level 136 Potassium Level 4.1 Chloride Level 103 Carbon Dioxide Level 24 Anion Gap 13 Blood Urea Nitrogen 9 Creatinine 0.60 Glucose Level 111 # Calcium Level 9.1 Phosphorus Level 4.5 Magnesium Level 2.1 Random Cortisol 18.6 Medications Medications Current Medications Ondansetron HCl (Zofran Inj) 4 mg Q6H PRN IV NAUSEA AND/OR VOMITING; Start 12/21 at 18:30 Acetaminophen (Tylenol Tab) 650 mg Q6H PRN PO PAIN LEVEL 1-3 OR FEVER Last administered on 12/21/16 23:42; Admin Dose 650 MG; Start 12/21/16 at 18:30 Acetaminophen/ Hydrocodone Bitart ([place] (5/325)) 1 tab Q6H PRN PO MODERATE PAIN LEVEL 4-6 Last administered on 12/25/16 03:57; Admin Dose 1 TAB; Start 12/21/16 at 18:30 Morphine Sulfate (morphine) 2 mg Q4H PRN IV SEVERE PAIN LEVEL 7-10 Last administered on 12/21/16 21:09; Admin Dose 1 MG; Start 12/21/16 at 18:30 Docusate Sodium (Colace) 100 mg Q12H PRN PO CONSTIPATION Last administered on 23:21; Admin Dose 100 MG; Start 12/21/16 at 18:30 Sodium Biphosphate/ Sodium Phosphate (Fleet Enema) 133 ml DAILY PRN [place] CONSTIPATION; Start 12/21/16 at 18:30 Hydralazine HCl (Apresoline) 10 mg Q6H PRN IV ELEVATED BLOOD PRESSURE; Start at 18:30 Nitroglycerin (Nitroglycerin (Sl Tab) 0.4 Mg) 1 tab Q5M PRN SL ANGINA; Start at 18:30 Atorvastatin Calcium (Lipitor) 10 mg DAILY PO Last administered on 12/26/16 09 :36; Admin Dose 10 MG; Start 12/22/16 at 09:00 Duloxetine HCl (Cymbalta) 60 mg DAILY PO Last administered on 12/25/16 09:43; Admin Dose 60 MG; Start 12/22/16 at 09:00 Gabapentin (Neurontin) 300 mg BID PO Last administered on 12/26/16 09:36; Admin Dose 300 MG; Start 12/21/16 at 21:00 Pyridostigmine [place] (Mestinon) 120 mg BID PO Last administered on 12/26/16 11:25; Admin Dose 120 MG; Start 12/21/16 at 21:00 Metoprolol Tartrate (Lopressor) 12.5 mg BID PO Last administered on 12/26/16 09:36; Admin Dose 12.5 MG; Start 12/21/16 at 21:00 Lorazepam (Ativan) 0.5 mg Q6H PRN PO ANXIETY; Start 12/24/16 at 22:00 MARIELA CABALLERO NP Dec 26, 2016 13:35
--- NOTE | 2016-12-26 15:08 | PN ---
Date/Time of Note Date/Time of Note DATE: 12/26/16 TIME: 15:05 Assessment/Plan VTE Prophylaxis VTE Prophylaxis Intervention: heparin Lines/Catheters IV [facility]ter Type (from [facility]ine [facility] Urinary Cath still in place: No Assessment/Plan Chief Complaint/Hosp Course 1. Chest pain. Acute coronary syndrome ruled out. Serial troponins negative. Status post evaluation by cardiology. Cardiac stress test negative for any reversible perfusion defects. 2. Dyslipidemia. Continue statins. 3. Myasthenia gravis. Status post thymectomy. Continue Mestinon. 4. Abdominal pain. Esophagogastroduodenoscopy showed erosive esophagitis, gastritis, and multiple gastric ulcers. Pathology negative for any malignancy or H. pylori. Continue proton pump inhibitors. 5. Bilateral benign adrenal adenomas. Being followed by endocrinology. 6. Fluids, electrolytes, and nutrition. Low-cholesterol diet. 7. Gastrointestinal prophylaxis. Proton pump inhibitors. 8. DVT prophylaxis. Bilateral sequential compression devices. Subcutaneous heparin. 9. Plan. Await clearance from Endocrinology before discharge. Case discussed with . Problems: Subjective 24 Hr Interval Summary Free Text/Dictation Denies any chest pain. Exam/Review of Systems Vital Signs Vitals Vital Signs Date Time Temp Pulse Resp B/P Pulse Ox O2 Delivery O2 Flow Rate FiO2 12/26/16 12:03 86 12/26/16 11:43 98.1 18 108/61 94 12/25/16 12:15 Room Air 12/22/16 19:53 2.0 Intake and Output 12/25/16 12/25/16 12/26/16 15:00 23:00 07:00 Intake Total 1600 ml 660 ml Balance 1600 ml 660 ml Exam General: Obese 71 year-old female lying in bed in no apparent distress. HEENT: Normocephalic, atraumatic. Eyes: Anicteric sclerae, conjunctivae clear. ENT: Nasal septum midline, oral mucosa moist. Neck supple, no JVD noticed. Respiratory: Bilaterally clear breath sounds. No use of accessory muscles of respiration. No adventitious breath sounds. Cardiovascular: S1, S2 heard. No murmurs or gallops. Sternotomy scar. Abdomen: Soft, nontender, and nondistended. Bowel sounds positive in all 4 quadrants. Genitourinary: Deferred. Extremities: No cyanosis, no clubbing, no edema. Peripheral pulses palpable. Neurologic: Cranial nerves II through XII grossly intact. The patient is awake, alert, and oriented. Skin: Normal skin turgor. No skin rashes. Results Result Diagram: 12/26/16 0758 12/26/16 0758 Results 24 hrs Laboratory Tests Test 12/26/16 07:58 White Blood Count 2.5 #L Red Blood Count 4.30 Hemoglobin 13.0 Hematocrit 37.8 Mean Corpuscular Volume 87.9 Mean Corpuscular Hemoglobin 30.2 Mean Corpuscular Hemoglobin Concent 34.4 Red Cell Distribution Width 12.2 Platelet Count 297 Mean Platelet Volume 9.4 Neutrophils % 37.4 L Lymphocytes % 32.3 Monocytes % 23.6 H Eosinophils % 5.1 Basophils % 1.2 Nucleated Red Blood Cells % 0.0 Neutrophils # 1.0 L Lymphocytes # 0.8 Monocytes # 0.6 Eosinophils # 0.1 Basophils # 0.0 Nucleated Red Blood Cells # 0.0 Sodium Level 136 Potassium Level 4.1 Chloride Level 103 Carbon Dioxide Level 24 Anion Gap 13 Blood Urea Nitrogen 9 Creatinine 0.60 Glucose Level 111 # Calcium Level 9.1 Phosphorus Level 4.5 Magnesium Level 2.1 Random Cortisol 18.6 Medications Medications Current Medications Ondansetron HCl (Zofran Inj) 4 mg Q6H PRN IV NAUSEA AND/OR VOMITING; Start 12/21 at 18:30 Acetaminophen (Tylenol Tab) 650 mg Q6H PRN PO PAIN LEVEL 1-3 OR FEVER Last administered on 12/21/16 23:42; Admin Dose 650 MG; Start 12/21/16 at 18:30 Acetaminophen/ Hydrocodone Bitart ([place] (5/325)) 1 tab Q6H PRN PO MODERATE PAIN LEVEL 4-6 Last administered on 12/25/16 03:57; Admin Dose 1 TAB; Start 12/21/16 at 18:30 Morphine Sulfate (morphine) 2 mg Q4H PRN IV SEVERE PAIN LEVEL 7-10 Last administered on 12/21/16 21:09; Admin Dose 1 MG; Start 12/21/16 at 18:30 Docusate Sodium (Colace) 100 mg Q12H PRN PO CONSTIPATION Last administered on 23:21; Admin Dose 100 MG; Start 12/21/16 at 18:30 Sodium Biphosphate/ Sodium Phosphate (Fleet Enema) 133 ml DAILY PRN [place] CONSTIPATION; Start 12/21/16 at 18:30 Hydralazine HCl (Apresoline) 10 mg Q6H PRN IV ELEVATED BLOOD PRESSURE; Start at 18:30 Nitroglycerin (Nitroglycerin (Sl Tab) 0.4 Mg) 1 tab Q5M PRN SL ANGINA; Start at 18:30 Atorvastatin Calcium (Lipitor) 10 mg DAILY PO Last administered on 12/26/16 09 :36; Admin Dose 10 MG; Start 12/22/16 at 09:00 Duloxetine HCl (Cymbalta) 60 mg DAILY PO Last administered on 12/25/16 09:43; Admin Dose 60 MG; Start 12/22/16 at 09:00 Gabapentin (Neurontin) 300 mg BID PO Last administered on 12/26/16 09:36; Admin Dose 300 MG; Start 12/21/16 at 21:00 Pyridostigmine [place] (Mestinon) 120 mg BID PO Last administered on 12/26/16 11:25; Admin Dose 120 MG; Start 12/21/16 at 21:00 Metoprolol Tartrate (Lopressor) 12.5 mg BID PO Last administered on 12/26/16 09:36; Admin Dose 12.5 MG; Start 12/21/16 at 21:00 Lorazepam (Ativan) 0.5 mg Q6H PRN PO ANXIETY; Start 12/24/16 at 22:00 LORRAINE WU NP Dec 26, 2016 15:08
--- NOTE | 2016-12-26 17:14 | CONS ---
Date/Time of Note Date/Time of Note DATE: 12/26/16 TIME: 17:11 Assessment/Plan Assessment/Plan Chief Complaint/Hosp Course Pleasant 71-year-old [place] woman with an interesting medical history for myasthenia gravis was admitted for chest pain. In the course of workup she has been noted to have a 2.3 cm right adrenal nodule. The patient reports she was unaware of this for many prior information. Her main doctor is Dr. Mae Cooper in [place]. Patient has no history of hypertension she does not have any history of abnormal weight gain or signs or symptoms of hypercortisolism. She has borderline glucose intolerance. She does not have osteoporosis the best of her knowledge Problems: (1) Right adrenal mass Status: Chronic Comment: Based on the contrast-enhanced CT scan this is not consistent with a metastatic lesion. As such an adrenal adenoma is present. This most likely a nonfunctioning adrenal adenoma. Might consider dexamethasone suppression test are ineffective as the patient refused the dexamethasone last night and so her morning cortisol is a legitimate normal morning cortisol and a non-suppressed patient. To do this will have to do a 24 urine for free cortisol and 24-hour catecholamines. This can be done as an outpatient. I will continue to work with her until the time of her discharge as directed by the primary care team Consultation Date/Type/Reason Admit Date/Time Dec 23, 2016 at 16:58 Initial Consult Date 12/25/16 Type of Consultation: Endocrinology Reason for Consultation Adrenal nodule Referring Provider: LORRAINE WU NP 24 HR Interval Summary Free Text/Dictation No new complaints or findings Exam/Review of Systems Vital Signs Vitals Vital Signs Date Time Temp Pulse Resp B/P Pulse Ox O2 Delivery O2 Flow Rate FiO2 12/26/16 16:03 79 12/26/16 15:24 98.5 19 104/58 93 12/25/16 12:15 Room Air 12/22/16 19:53 2.0 Intake and Output 12/25/16 12/25/16 12/26/16 14:59 22:59 06:59 Intake Total 1600 ml 660 ml Balance 1600 ml 660 ml Exam No changes Results Result Diagram: 12/26/16 0758 12/26/16 0758 Results 24 hrs Laboratory Tests Test 12/26/16 07:58 White Blood Count 2.5 #L Red Blood Count 4.30 Hemoglobin 13.0 Hematocrit 37.8 Mean Corpuscular Volume 87.9 Mean Corpuscular Hemoglobin 30.2 Mean Corpuscular Hemoglobin Concent 34.4 Red Cell Distribution Width 12.2 Platelet Count 297 Mean Platelet Volume 9.4 Neutrophils % 37.4 L Lymphocytes % 32.3 Monocytes % 23.6 H Eosinophils % 5.1 Basophils % 1.2 Nucleated Red Blood Cells % 0.0 Neutrophils # 1.0 L Lymphocytes # 0.8 Monocytes # 0.6 Eosinophils # 0.1 Basophils # 0.0 Nucleated Red Blood Cells # 0.0 Sodium Level 136 Potassium Level 4.1 Chloride Level 103 Carbon Dioxide Level 24 Anion Gap 13 Blood Urea Nitrogen 9 Creatinine 0.60 Glucose Level 111 # Calcium Level 9.1 Phosphorus Level 4.5 Magnesium Level 2.1 Random Cortisol 18.6 Medications Medications Current Medications Ondansetron HCl (Zofran Inj) 4 mg Q6H PRN IV NAUSEA AND/OR VOMITING; Start 12/21 at 18:30 Acetaminophen (Tylenol Tab) 650 mg Q6H PRN PO PAIN LEVEL 1-3 OR FEVER Last administered on 12/21/16 23:42; Admin Dose 650 MG; Start 12/21/16 at 18:30 Acetaminophen/ Hydrocodone Bitart ([place] (5/325)) 1 tab Q6H PRN PO MODERATE PAIN LEVEL 4-6 Last administered on 12/25/16 03:57; Admin Dose 1 TAB; Start 12/21/16 at 18:30 Morphine Sulfate (morphine) 2 mg Q4H PRN IV SEVERE PAIN LEVEL 7-10 Last administered on 12/21/16 21:09; Admin Dose 1 MG; Start 12/21/16 at 18:30 Docusate Sodium (Colace) 100 mg Q12H PRN PO CONSTIPATION Last administered on 23:21; Admin Dose 100 MG; Start 12/21/16 at 18:30 Sodium Biphosphate/ Sodium Phosphate (Fleet Enema) 133 ml DAILY PRN [place] CONSTIPATION; Start 12/21/16 at 18:30 Hydralazine HCl (Apresoline) 10 mg Q6H PRN IV ELEVATED BLOOD PRESSURE; Start at 18:30 Nitroglycerin (Nitroglycerin (Sl Tab) 0.4 Mg) 1 tab Q5M PRN SL ANGINA; Start at 18:30 Atorvastatin Calcium (Lipitor) 10 mg DAILY PO Last administered on 12/26/16 09 :36; Admin Dose 10 MG; Start 12/22/16 at 09:00 Duloxetine HCl (Cymbalta) 60 mg DAILY PO Last administered on 12/25/16 09:43; Admin Dose 60 MG; Start 12/22/16 at 09:00 Gabapentin (Neurontin) 300 mg BID PO Last administered on 12/26/16 09:36; Admin Dose 300 MG; Start 12/21/16 at 21:00 Pyridostigmine [place] (Mestinon) 120 mg BID PO Last administered on 12/26/16 11:25; Admin Dose 120 MG; Start 12/21/16 at 21:00 Metoprolol Tartrate (Lopressor) 12.5 mg BID PO Last administered on 12/26/16 09:36; Admin Dose 12.5 MG; Start 12/21/16 at 21:00 Lorazepam (Ativan) 0.5 mg Q6H PRN PO ANXIETY; Start 12/24/16 at 22:00 CHERELLE TORREZ MD Dec 26, 2016 17:13
[2016-12-26] MEDS ORDERED: INDOMETHACIN 50 MG PO SCH (21:00)
[2016-12-26] MEDS: DOCUSATE SODIUM 100 MG CAP PO PRN (21:42)
[2016-12-26] MEDS: PANTOPRAZOLE (EC) 40 MG TAB PO SCH (22:34)
[2016-12-26] MEDS: HYDROCODONE/APAP (5/325) TAB PO PRN (22:37)
[2016-12-27] VITALS (10 sets, daily range): BP systolic 100–127; BP diastolic 53–70; PULSE 58–73; RESP 15–20
[2016-12-27] MEDS: PANTOPRAZOLE (EC) 40 MG TAB PO SCH ×2 (05:52→18:19)
[2016-12-27] MEDS: METOPROLOL 25 MG TAB PO SCH (09:13)
[2016-12-27] MEDS: DULOXETINE 30 MG CAP DR PO SCH (09:13)
[2016-12-27] MEDS: PYRIDOSTIGMINE 60 MG TAB PO SCH (09:13)
[2016-12-27] MEDS: ATORVASTATIN 10 MG TAB PO SCH (09:13)
[2016-12-27] MEDS: GABAPENTIN 300 MG CAP PO SCH (09:13)
--- NOTE | 2016-12-27 09:13 | PDOCDIS ---
Discharge Instructions DIAGNOSIS Discharge Diagnosis Peptic ulcer disease. CONDITION Patient Condition: Stable HOME CARE INSTRUCTIONS: Diet Instructions: Reduced SodiumSpecial Diet: 2 gm Na FOLLOW UP/APPOINTMENTS Follow-up Plan 1. Min Covarrubias MD Specialty: Endocrinology Office Address [address] [place], [place] [id number] Office OTHER ORDERS: Other Orders: 1. Take medications as per prescription. 2. Follow a low-sodium, low spicy diet. 3. Resume activities as tolerated. 4. Follow-up with your primary care physician 1 week. 5. Follow-up with outpatient endocrinology [Dr. Covarrubias] in 2 weeks. Please call for appointment. LORRAIEN WU NP Dec 27, 2016 09:13
[2016-12-27] MEDS ORDERED: PANT40TA3 PO (09:15)
--- NOTE | 2016-12-27 12:49 | DS ---
Date/Time of Note Date/Time of Note DATE: 12/27/16 TIME: 12:47 Discharge Summary Admission/Discharge Info Admit Date/Time Dec 23, 2016 at 16:58 Discharge Date/Time Discharge Diagnosis 1. Atypical chest pain. 2. Dyslipidemia. 3. Myasthenia gravis. 4. Obesity. 5. Bilateral benign adrenal adenomas. 6. Pericardial effusion. Patient Condition: Stable Consults 1. Luis Antonio Burgos DO, Cardiology. 2. Marci Chowdary, Endocrinology. 3. Ernesto Ferreira MD, Gastroenterology. Procedures 2D Echocardiogram Conclusions 1. Lower limits of normal systolic function, not all wall segments are seen clearly. Normal left ventricular cavity size. Mild hypertrophy of the basal septum. Ejection fraction is visually estimated at 50 %. Tissue Doppler/Mitral Doppler indices are consistent with impaired relaxation (Stage I diastolic dysfunction). 2. Normal right ventricular size. Normal right ventricular systolic function. 3. The left atrium is normal in size. 4. The right atrium is normal in size. 5. No significant valvular stenosis or regurgitation seen. 6. Small to medium pericardial effusion. The effusion in the parasternal and subcostal images does not measure greater than 1.0cm. Nuclear Medicine Cardiac Stress Test IMPRESSION: 1. Negative myocardial perfusion scan. 2. There is no evidence for reversible ischemia. 3. Normal wall motion with normal ejection fraction of 70%. Esophagogastroduodenoscopy Postoperative Diagnosis * Erosive esophagitis. * Erosive gastritis. Rule out a spinal infection. Biopsies obtained * Multiple gastric ulcers, bulb and postbulbar. Rule out Yury-Reynoso syndrome Abdominal MRI IMPRESSION: 1. Status post cholecystectomy. 2. Normal bile ducts. 3. Right adrenal nodule measuring 2.4 x 2.0 cm. Correlation with adrenal protocol CT or MRI with in phase and opposed phase imaging of the adrenals should be considered. 4. Otherwise unremarkable study. CT Scan of the Abdomen with Contrast IMPRESSION: 1. Mild pericardial effusion is identified, increased from the prior CT. There is slight enhancement and thickening of pericardial surfaces, concerning for pericarditis. 2. Mild bilateral pleural effusions are noted, also increased. 3. Bilateral benign adrenal adenomas are identified. There is no evidence of adrenal malignancy. 4. Hepatic steatosis is noted. Gallbladder is surgically absent. 5. Aortic atherosclerotic calcifications are present. 6. Scattered colonic diverticula are seen without diverticulitis. CT Angiogram of the Chest IMPRESSION: No visualized pulmonary embolus. Mild ectasia of the ascending thoracic aorta, measuring up to 3.7 cm. 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 Small to moderate pericardial effusion. Scattered atelectasis mixed with mild ground-glass opacity in the bilateral lower lobes. Ground-glass opacity could reflect mild airspace edema versus mild airspace inflammation. 2.6 cm low attenuation nodule in the right adrenal gland. This nodule is incompletely characterized on the current study. Further characterization with an adrenal protocol CT or MRI is recommended. Degenerative changes in the spine. Hx of Present Illness 71-year-old [place] female with past medical history of dyslipidemia, myasthenia gravis, GERD, and thymus surgery who came to the emergency room with chief complaint of chest pain. The patient verbalized radiation of chest pain to the shoulders and lower back. The patient also complained of palpitations. Patient verbalized her chest pain is constant. There was no upper or lower GI bleeding. Patient denied any fevers, chills, nausea, vomiting, diarrhea, or constipation. Hospital Course The patient was admitted to inpatient telemetry floor. Serial troponins were ordered. A 2D echocardiogram was ordered. Cardiology saw and evaluated the patient. The patient underwent a nuclear medicine cardiac stress test that was negative for any reversible perfusion defects. The patient underwent a 2D echocardiogram that showed preserved left ventricular ejection fraction. However, it showed a small to medium pericardial effusion. The patient was ruled out for any acute coronary syndrome. The patient's chest pain could have been most probably secondary to the underlying pericardial effusion versus others. The patient has underlying dyslipidemia. The patient was maintained on a low- cholesterol diet. Patient was also complaining of some epigastric burning. The patient verbalized that she has history of GERD. Consequently a gastroenterology consult was obtained. The patient underwent a esophagogastroduodenoscopy that showed erosive esophagitis, erosive gastritis and multiple gastric ulcers. The patient's a gastric biopsy was negative for any H. pylori or any malignancy. The patient will be maintained on proton pump inhibitors. The patient has history of myasthenia gravis. The patient was maintained on Mestinon for the same. Patient had a incidental finding of adrenal adenoma. Endocrinology was consulted. The patient underwent an abdominal MRI and abdominal CT that showed bilateral adrenal adenoma. Initially the plan was to do a dexamethasone suppression test. However, the patient refused dexamethasone. Hence a urine collection was ordered for 24 hour free cortisol and 24-hour catecholamines. The urine sample for this is being collected. Meanwhile, the patient will be discharged home to be followed up with outpatient endocrinology. The patient has been ruled out for acute coronary syndrome. The patient had a stable hospital course. The patient was cleared by consultants to be discharged home. Discharge Instructions 1. Take medications as per prescription. 2. Follow a low-sodium, low spicy diet. 3. Resume activities as tolerated. 4. Follow-up with your primary care physician 1 week. 5. Follow-up with outpatient endocrinology [Dr. Covarrubias] in 2 weeks. Please call for appointment. The patient verbalized understanding of her discharge instructions. At this time I would like to thank all the consultants for seeing the patient, doing the necessary procedures, and providing clinical recommendations. Case discussed with . Home Meds Active Scripts Pantoprazole* (Protonix*) 40 Mg Tablet., 40 MG PO BID for 30 Days, TAB Prov:LORRAINE UW NP 12/27/16 Reported Medications Duloxetine Hcl* (Duloxetine Hcl*) 60 Mg Capsule.dr, 60 MG PO DAILY, #30 CAP 12/21/16 Atorvastatin Calcium (Atorvastatin Calcium) 10 Mg Tablet, 10 MG PO DAILY, #30 TAB 12/21/16 Gabapentin* (Gabapentin*) 300 Mg Capsule, 300 MG PO BID, #60 CAP 12/21/16 Pyridostigmine [place]* (Pyridostigmine [place]*) 60 Mg Tablet, 120 MG PO BID, TAB 12/21/16 Discontinued Reported Medications Celecoxib* (Celebrex*) 200 Mg Capsule, 200 MG PO DAILY, CAP 12/21/16 Follow-up Plan Follow-up with your primary care physician in 7 days. Follow-up with endocrinology in 2 weeks. Primary Care Provider Not On Staff Doctor Time spent on discharge: > 30 minutes Pending Labs I & O 12/27/16 07:00 Intake Total 1190 ml Output Total 950 ml Balance 240 ml Current Medications Medications (Trade) Dose Ordered Sig/Brandyn Route PRN Reason Start Time Stop Time Status Last Admin Dose Admin Acetaminophen (Tylenol Tab) 650 mg ER BRIDGE PRN PO MILD PAIN/FEVER 12/21/16 18:00 12/21/16 19:50 DC Acetaminophen (Tylenol Tab) 650 mg ONCE ONCE PO 12/21/16 15:30 12/21/16 15:31 DC 12/21/16 15:46 Acetaminophen (Tylenol Tab) 650 mg Q6H PRN PO PAIN LEVEL 1-3 OR FEVER 12/21/16 18:30 12/21/16 23:42 Acetaminophen/ Hydrocodone Bitart ([place] (5/325)) 1 tab Q6H PRN PO MODERATE PAIN LEVEL 4-6 12/21/16 18:30 12/26/16 22:37 Albuterol/ Ipratropium (Duoneb) 3 ml Q4H RESP THERAPY PRN HHN SHORTNESS OF BREATH 12/21/16 18:30 Aspirin (Ecotrin) 325 mg DAILY PO 12/22/16 09:00 12/23/16 10:57 DC 12/22/16 08:16 Aspirin (Halfprin) 81 mg DAILY PO 12/24/16 09:00 12/24/16 15:54 DC 12/24/16 09:43 Atorvastatin Calcium (Lipitor) 10 mg DAILY PO 12/22/16 09:00 12/27/16 09:13 Barium Sulfate (Readi-Cat 2 ( [place] [employer] )) 900 ml GIVE PRIOR TO CT ONCE PO 12/25/16 15:30 12/25/16 15:31 DC Dexamethasone (Decadron) 1 mg ONCE ONCE PO 12/25/16 23:30 12/25/16 23:31 DC Diphenhydramine HCl (Benadryl) 25 mg PACU ORDER PRN IV PRURITUS 12/24/16 16:00 12/24/16 21:00 DC Docusate Sodium (Colace) 100 mg Q12H PRN PO CONSTIPATION 12/21/16 18:30 12/26/16 21:42 Duloxetine HCl (Cymbalta) 60 mg DAILY PO 12/22/16 09:00 12/27/16 09:13 Ephedrine Sulfate 5 mg PACU ORDER PRN IV MAP LESS THAN 60 12/24/16 16:00 12/24/16 21:00 DC Famotidine (Pepcid Iv) 20 mg ONCE STAT IV 12/21/16 17:55 12/21/16 17:57 DC 12/21/16 18:11 Gabapentin (Neurontin) 300 mg BID PO 12/21/16 21:00 12/27/16 09:13 Haloperidol (Haldol) 1 mg PACU ORDER PRN IV NAUSEA AND/OR VOMITING 12/24/16 16:00 12/24/16 21:00 DC Heparin Sodium (Porcine) 5000 unit 5,000 unit Q12 SC 12/21/16 21:00 12/23/16 23:00 DC 12/23/16 21:37 Hydralazine HCl (Apresoline) 5 mg PACU ORDER PRN IV HIGH BLOOD PRESSURE 12/24/16 16:00 12/24/16 21:00 DC Hydralazine HCl (Apresoline) 10 mg Q6H PRN IV ELEVATED BLOOD PRESSURE 12/21/16 18:30 Indomethacin (Indocin) 50 mg TID PO 12/26/16 21:00 12/26/16 21:00 DC Iohexol (Omnipaque) 0 ml @ ud STK-MED ONCE .ROUTE 12/25/16 18:25 12/25/16 18:26 DC Iohexol (Omnipaque) 100 ml @ ud STK-MED ONCE .ROUTE 12/25/16 18:45 12/25/16 18:46 DC Iohexol (Omnipaque) 100 ml @ ud STK-MED ONCE .ROUTE 12/26/16 09:39 12/26/16 09:40 DC Iohexol (Omnipaque) 100 ml @ ud STK-MED ONCE .ROUTE 12/21/16 16:01 12/21/16 16:02 DC 12/21/16 16:33 IV Flush (NS 3 ml) 3 ml PER PROTOCOL IV 12/21/16 18:30 IV Flush 10 ml 10 ml STK-MED ONCE .ROUTE 12/25/16 18:25 12/25/16 18:26 DC IV Flush 10 ml 10 ml STK-MED ONCE .ROUTE 12/25/16 18:44 12/25/16 18:45 DC IV Flush 10 ml 10 ml STK-MED ONCE .ROUTE 12/26/16 09:39 12/26/16 09:40 DC IV Flush 10 ml 10 ml STK-MED ONCE .ROUTE 12/21/16 16:01 12/21/16 16:02 DC 12/21/16 16:33 Ketorolac Tromethamine (Toradol) 15 mg ONCE STAT IV 12/21/16 17:55 12/21/16 17:57 DC 12/21/16 18:11 Labetalol HCl (Labetalol) 5 mg PACU ORDER PRN IV HIGH BLOOD PRESSURE 12/24/16 16:00 12/24/16 21:00 DC Lidocaine (Xylocaine 2% (Sdv)) 100 mg STK-MED ONCE .ROUTE 12/24/16 15:37 12/24/16 15:38 DC Lorazepam (Ativan) 0.5 mg Q6H PRN IV ANXIETY 12/21/16 18:30 12/24/16 21:33 DC Lorazepam (Ativan) 0.5 mg Q6H PRN PO ANXIETY 12/24/16 22:00 Magnesium Hydroxide (Milk Of Mag) 30 ml DAILY PRN PO CONSTIPATION 12/21/16 18:30 12/23/16 10:57 DC Magnesium Sulfate (Magnesium Sulfate 2 Gm/50 ml) 50 ml @ 25 mls/hr ONCE ONCE IVPB 12/22/16 02:00 12/22/16 03:59 DC 12/22/16 02:23 Meperidine HCl (Demerol) 25 mg PACU ORDER PRN IV POST-OP RIGORS 12/24/16 16:00 12/24/16 21:00 DC Metoprolol Tartrate 12.5 mg 12.5 mg BID PO 12/21/16 21:00 12/27/16 09:13 Midazolam HCl 2 mg 2 mg STK-MED ONCE .ROUTE 12/24/16 15:37 12/24/16 15:38 DC Miscellaneous Medication (Gi Cocktail (2)) 40 ml ONCE STAT PO 12/21/16 17:55 12/21/16 17:57 DC 12/21/16 18:11 Morphine Sulfate (morphine) 2 mg Q4H PRN IV SEVERE PAIN LEVEL 712/21/16 18:30 12/21/16 21:09 Morphine Sulfate (morphine) 4 mg ONCE STAT IV 12/21/16 14:57 12/21/16 14:58 DC Nitroglycerin (Nitroglycerin (Sl Tab) 0.4 Mg) 1 tab Q5M PRN SL ANGINA 12/21/16 18:30 Ondansetron HCl (Zofran Inj) 4 mg ER BRIDGE PRN IV NAUSEA AND/OR VOMITING 12/21/16 18:00 12/21/16 19:50 DC Ondansetron HCl (Zofran Inj) 4 mg ONCE STAT IV 12/21/16 14:57 12/21/16 14:58 DC Ondansetron HCl (Zofran Inj) 4 mg PACU ORDER PRN IV NAUSEA AND/OR VOMITING 12/24/16 16:00 12/24/16 21:00 DC Ondansetron HCl (Zofran Inj) 4 mg Q6H PRN IV NAUSEA AND/OR VOMITING 12/21/16 18:30 Oxycodone/ Acetaminophen (Percocet (5/ 325)) 1 tab PACU ORDER PRN PO PAIN LEVEL 1-5 12/24/16 16:00 12/24/16 21:00 DC Pantoprazole (Protonix Tab) 40 mg BID PO 12/24/16 21:00 12/24/16 21:00 DC Pantoprazole (Protonix Tab) 40 mg BID@06,18 PO 12/26/16 22:00 12/27/16 05:52 Pantoprazole (Protonix Tab) 40 mg DAILY@06 PO 12/22/16 06:00 12/24/16 15:54 DC 12/22/16 05:58 Propofol (Diprivan) 20 ml @ ud STK-MED ONCE .ROUTE 12/24/16 15:37 12/24/16 15:38 DC Pyridostigmine [place] (Mestinon) 120 mg BID PO 12/21/16 21:00 12/27/16 09:13 Regadenoson (Lexiscan) 0.4 mg STK-MED ONCE .ROUTE 12/23/16 10:09 12/23/16 10:10 DC Sodium Biphosphate/ Sodium Phosphate (Fleet Enema) 133 ml DAILY PRN [place] CONSTIPATION 12/21/16 18:30 Sodium Chloride 0 ml @ ud STK-MED ONCE .ROUTE 12/25/16 18:25 12/25/16 18:26 DC Sodium Chloride 100 ml @ ud STK-MED ONCE .ROUTE 12/25/16 18:45 12/25/16 18:46 DC Sodium Chloride 100 ml @ ud STK-MED ONCE .ROUTE 12/26/16 09:39 12/26/16 09:40 DC Sodium Chloride 100 ml @ ud STK-MED ONCE .ROUTE 12/21/16 16:01 12/21/16 16:02 DC 12/21/16 16:33 Sodium Chloride (1/2 NS) 1,000 ml @ 75 mls/hr [id number] IV 12/21/16 18:25 12/22/16 11:01 DC 12/21/16 21:45 Sodium Chloride (NS) 500 ml @ 500 mls/hr Q1H STAT IV 12/21/16 14:57 12/21/16 15:56 DC 12/21/16 15:12 LORRAINE WU FOWL BLOOD TESTER Dec 27, 2016 12:49
--- NOTE | 2016-12-27 14:09 | PN ---
Date/Time of Note Date/Time of Note DATE: 12/27/16 TIME: 14:06 Assessment/Plan VTE Prophylaxis VTE Prophylaxis Intervention: ambulation Lines/Catheters IV Catheter Type (from Nrs): Saline Lock Urinary Cath still in place: No Assessment/Plan Assessment/Plan Assessment * Chest pain Atypical Chest pain EGD Erosive esophagitis. Erosive gastritis. Rule out a spinal infection. Biopsies obtained Multiple gastric ulcers, bulb and postbulbar. Rule out Yury-Reynoso syndrome * Myasthenia gravis * History of GERD' * History of Thymus surgery Plan * stable for outpatient management * Pantoprazole 40 mg BID x6 weeks * case discussed with Dr Ferreira Subjective 24 Hr Interval Summary Free Text/Dictation * Course reviewed with RN * Patient seen and examined * No untoward events overnight Exam/Review of Systems Vital Signs Vitals Vital Signs Date Time Temp Pulse Resp B/P Pulse Ox O2 Delivery O2 Flow Rate FiO2 12/27/16 12:22 98.0 73 18 127/70 98 12/25/16 12:15 Room Air Intake and Output 12/26/16 12/26/16 12/27/16 15:00 23:00 07:00 Intake Total 750 ml 440 ml Output Total 950 ml Balance 750 ml -510 ml Exam Constitutional: alert, oriented Psych: no complaints Eyes: nl conjunctiva Neck: non-tender, supple Respiratory: clear to auscultation, normal air movement Cardiovascular: nl pulses, regular rate and rhythm Gastrointestinal: nl liver, spleen, non-tender, soft Musculoskeletal: nl extremities to inspection, nl gait and stance Extremities: normal pulses Neurological: nl speech, nl strength Skin: nl turgor, rash or lesions Lymph: nl lymph nodes Results Result Diagram: 12/26/16 0758 12/26/16 0758 Medications Medications Current Medications Ondansetron HCl (Zofran Inj) 4 mg Q6H PRN IV NAUSEA AND/OR VOMITING; Start 12/21 at 18:30 Acetaminophen (Tylenol Tab) 650 mg Q6H PRN PO PAIN LEVEL 1-3 OR FEVER Last administered on 12/21/16 23:42; Admin Dose 650 MG; Start 12/21/16 at 18:30 Acetaminophen/ Hydrocodone Bitart ([place] (5/325)) 1 tab Q6H PRN PO MODERATE PAIN LEVEL 4-6 Last administered on 12/26/16 22:37; Admin Dose 1 TAB; Start 12/21/16 at 18:30 Morphine Sulfate (morphine) 2 mg Q4H PRN IV SEVERE PAIN LEVEL 7-10 Last administered on 12/21/16 21:09; Admin Dose 1 MG; Start 12/21/16 at 18:30 Docusate Sodium (Colace) 100 mg Q12H PRN PO CONSTIPATION Last administered on 21:42; Admin Dose 100 MG; Start 12/21/16 at 18:30 Sodium Biphosphate/ Sodium Phosphate (Fleet Enema) 133 ml DAILY PRN [place] CONSTIPATION; Start 12/21/16 at 18:30 Hydralazine HCl (Apresoline) 10 mg Q6H PRN IV ELEVATED BLOOD PRESSURE; Start at 18:30 Nitroglycerin (Nitroglycerin (Sl Tab) 0.4 Mg) 1 tab Q5M PRN SL ANGINA; Start at 18:30 Atorvastatin Calcium (Lipitor) 10 mg DAILY PO Last administered on 12/27/16 09 :13; Admin Dose 10 MG; Start 12/22/16 at 09:00 Duloxetine HCl (Cymbalta) 60 mg DAILY PO Last administered on 12/27/16 09:13; Admin Dose 60 MG; Start 12/22/16 at 09:00 Gabapentin (Neurontin) 300 mg BID PO Last administered on 12/27/16 09:13; Admin Dose 300 MG; Start 12/21/16 at 21:00 Pyridostigmine [place] (Mestinon) 120 mg BID PO Last administered on 12/27/16 09:13; Admin Dose 120 MG; Start 12/21/16 at 21:00 Metoprolol Tartrate (Lopressor) 12.5 mg BID PO Last administered on 12/27/16 09:13; Admin Dose 12.5 MG; Start 12/21/16 at 21:00 Lorazepam (Ativan) 0.5 mg Q6H PRN PO ANXIETY; Start 12/24/16 at 22:00 Pantoprazole (Protonix Tab) 40 mg BID@,18 PO Last administered on 12/27/16 05:52; Admin Dose 40 MG; Start 12/26/16 at 22:00 MARIELA CABALLERO NP Dec 27, 2016 14:09
[2016-12-27] MEDS: HYDROCODONE/APAP (5/325) TAB PO PRN (15:25)
== END 2016-12-27 18:42 | disposition home or self-care (01) | DRG 381 ==
LOC: E/R 13:24 → UNDOADMOB 17:59 → TEL 17:59 → OBSVTOIN 12-23 16:58 → TEL 12-23 16:58
PROVIDERS: ADMIT Hospitalist; ATTEND Hospitalist
PROC: 0DB68ZX Excision of Stomach, Via Natural or Artificial Opening Endoscopic, Diagnostic (ICD-10-PCS; principal; 2016-12-24 18:30)
DX: K22.10 Ulcer of esophagus without bleeding (principal); I31.3 Pericardial effusion (noninflammatory); G70.00 Myasthenia gravis without (acute) exacerbation; R07.89 Other chest pain; E16.4 Increased secretion of gastrin; E78.5 Hyperlipidemia, unspecified; I10 Essential (primary) hypertension; E66.9 Obesity, unspecified; Z68.30 Body mass index [BMI] 30.0-30.9, adult; D35.02 Benign neoplasm of left adrenal gland; D35.01 Benign neoplasm of right adrenal gland; K21.0 Gastro-esophageal reflux disease with esophagitis; R00.0 Tachycardia, unspecified; R73.03 Prediabetes; K29.60 Other gastritis without bleeding; K25.9 Gastric ulcer, unspecified as acute or chronic, without hemorrhage or perforation; K76.0 Fatty (change of) liver, not elsewhere classified
CPT/HCPCS: 36415; 71010; 71275; 74170; 74181; 78452; 80048; 80053; 80061; 80076; 82533; 82550; 82553; 82962; 83036; 83735; 84100; 84439; 84443; 84484; 85025; 85610; 85730; 88305; 88312; 93005; 93017; 93306; 96374; 96375; A9500; A9505; J1644; J1885; J2250; J2270; J2785; J3475; J7040; Q9967